=== PATIENT | female | born 1970 | race Caucasian/White ===

== ENCOUNTER 2017-03-13 22:44 | Emergency (ER) | payer SELFPAY ==
[~2017-03-13] VITALS: Ht 172.7 cm; Wt 100.0 kg
[~2017-03-13 22:44] MED LIST: ACET325S8 PR; CLAR5TAB PO; LORT5TAB PO; TAB-TAB PO; TOPI50TA4 PO; VITA10002 PO; omnaris
[2017-03-13 22:46] VITALS: BP 156/94; PULSE 120; RESP 16; TEMP 98.4; O2SAT 98
[2017-03-13 23:08] VITALS: O2SAT 97
[2017-03-13] MEDS ORDERED: LEVO1TAB50 PO (23:15)
[2017-03-13] MEDS ORDERED: DICL1CAP4 PO (23:15)
[2017-03-13] MEDS ORDERED: BUSP1TAB PO (23:15)
[2017-03-13] MEDS ORDERED: TOPA25TA8 PO (23:15)
--- NOTE | 2017-03-13 23:37 | PD ---
HPI Chief Complaint: Abdominal Pain Time Seen by Provider: 23:37 Travel History International Travel<30 days: No Contact w/Intl Traveler<30days: No Traveled to known affect area: No History of Present Illness HPI 46-year-old female came to the emergency room with history of left lower quadrant pain. She said she thinks she has diverticulitis because she has had it in past. This time she was in discomfort for past 4 days. Today she started to get chills and nauseous and decided to come in. No history of vomiting or diarrhea. No history of bloody stool. Patient was tachycardic in the emergency room but afebrile. PFSH Past Medical History Narrative Medical List of her past medical, surgical, social and family history as reviewed from the nursing note. Arthritis: Yes Asthma: No Autoimmune Disease: No Anxiety: Yes Depression: Yes ("SITUATIONAL") Heart Rhythm Problems: No Cancer: No High Cholesterol: No Chemotherapy: No Chest Pain: No Congestive Heart Failure: No COPD: No Cerebrovascular Accident: No Diabetes: No Diminished Hearing: No Diverticulitis: Yes Deep Vein Thrombosis: Yes GERD: No Glaucoma: No Headaches: Yes Hepatitis: No Hiatal Hernia: No Hypertension: No Kidney Stones: No Reproductive: No Migraines: Yes Myocardial Infarction: No Radiation Therapy: No Renal Failure: No Seizures: No Sickle Cell Disease: No Sleep Apnea: No Thyroid Disease: No Ulcer: No ?: Not Past Surgical History AICD: No Appendectomy: No Arteriovenous Shunt: No Cholecystectomy: No Insulin Pump: No Oral Surgery: Yes (t and a) Pacemaker: No Tonsillectomy: Yes (T&A) Other Surgery: Yes Social History Alcohol Use: Yes (rare) Tobacco Use: No Substance Use: No Allergies-Medications (Allergen,Severity, Reaction): Coded Allergies: Penicillin (Verified Allergy, Severe, RASH, 03/13/17) Comments List of her allergies reviewed from the nursing note. Reported Meds & Prescriptions Reported Meds & Active Scripts Active Flagyl (Metronidazole) 500 Mg Tab 500 Mg PO TID 10 Days Ciprofloxacin (Ciprofloxacin HCl) 500 Mg Tab 500 Mg PO BID 10 Days Reported Xyzal (Levocetirizine Dihydrochloride) 5 Mg Tablet 5 Mg PO DAILY Zorvolex (Diclofenac) 35 Mg Cap 75 Mg PO BID Buspirone (Buspirone HCl) 7.5 Mg Tab 7.5 Mg PO BID Topamax (Topiramate) 25 Mg Tab 50 Mg PO HS Narrative Medication List of home medications reviewed from the nursing note. Review of Systems Except as stated in HPI: all other systems reviewed are Neg Physical Exam Narrative GENERAL: Awake, alert, moderate distress SKIN: Focused skin assessment warm/dry. HEAD: Atraumatic. Normocephalic. EYES: Pupils equal and round. No scleral icterus. No injection or drainage. ENT: No nasal bleeding or discharge. Mucous membranes pink and moist. NECK: Trachea midline. No JVD. CARDIOVASCULAR: Regular rate and rhythm. No murmur appreciated. RESPIRATORY: No accessory muscle use. Clear to auscultation. Breath sounds equal bilaterally. GASTROINTESTINAL: Abdomen soft, left lower quadrant tenderness, nondistended. Hepatic and splenic margins not palpable. MUSCULOSKELETAL: No obvious deformities. No clubbing. No cyanosis. No edema. NEUROLOGICAL: Awake and alert. No obvious cranial nerve deficits. Motor grossly within normal limits. Normal speech. PSYCHIATRIC: Appropriate mood and affect; insight and judgment normal. Data Data Last Documented VS Vital Signs Date Time Temp Pulse Resp B/P Pulse Ox O2 Delivery O2 Flow Rate FiO2 03/14/17 01:19 84 123/63 97 Room Air 03/13/17 23:07 15 03/13/17 22:46 98.4 Orders Complete Blood Count With Diff (03/13/17 23:40) Comprehensive Metabolic Panel (03/13/17 23:40) Lipase (03/13/17 23:40) Lactic Acid (03/13/17 23:40) Prothrombin Time / Inr (Pt) (03/13/17 23:40) Urinalysis - C+S If Indicated (03/13/17 23:40) Ct Abd/Pel W/O Iv Contrast (03/13/17 23:40) Iv Access Insert/Monitor (03/13/17 23:40) Ecg Monitoring (03/13/17 23:40) Oximetry (03/13/17 23:40) Morphine Inj (Morphine Inj) (03/13/17 23:45) Ondansetron Inj (Zofran Inj) (03/13/17 23:45) Sodium Chlor 0.9% 1000 Ml Inj (Ns 1000 M (03/13/17 23:40) Sodium Chloride 0.9% Flush (Ns Flush) (03/13/17 23:45) Potassium Chloride Eff (K-Lyte Cl Eff) (03/14/17 00:45) Ciprofloxacin 400 Mg Premix (Cipro 400 M (03/14/17 00:45) Metronidazole 500 Mg Inj (Flagyl 500 Mg (03/14/17 00:45) Labs Laboratory Tests Test 03/13/17 03/14/17 23:45 00:33 White Blood Count 12.2 TH/MM3 Red Blood Count 4.73 MIL/MM3 Hemoglobin 14.1 GM/DL Hematocrit 40.9 % Mean Corpuscular Volume 86.5 FL Mean Corpuscular Hemoglobin 29.9 PG Mean Corpuscular Hemoglobin 34.6 % Concent Red Cell Distribution Width 13.7 % Platelet Count 271 TH/MM3 Mean Platelet Volume 7.9 FL Neutrophils (%) (Auto) 78.4 % Lymphocytes (%) (Auto) 13.9 % Monocytes (%) (Auto) 6.7 % Eosinophils (%) (Auto) 0.8 % Basophils (%) (Auto) 0.2 % Neutrophils # (Auto) 9.6 TH/MM3 Lymphocytes # (Auto) 1.7 TH/MM3 Monocytes # (Auto) 0.8 TH/MM3 Eosinophils # (Auto) 0.1 TH/MM3 Basophils # (Auto) 0.0 TH/MM3 CBC Comment DIFF FINAL Differential Comment Prothrombin Time 10.7 SEC Prothromb Time International 1.0 RATIO Ratio Sodium Level 142 MEQ/L Potassium Level 3.4 MEQ/L Chloride Level 108 MEQ/L Carbon Dioxide Level 24.8 MEQ/L Anion Gap 9 MEQ/L Blood Urea Nitrogen 11 MG/DL Creatinine 0.80 MG/DL Estimat Glomerular Filtration 77 ML/MIN Rate Random Glucose 110 MG/DL Lactic Acid Level 1.2 mmol/L Calcium Level 8.8 MG/DL Total Bilirubin 0.6 MG/DL Aspartate Amino Transf 33 U/L (AST/SGOT) Alanine Aminotransferase 59 U/L (ALT/SGPT) Alkaline Phosphatase 55 U/L Total Protein 7.8 GM/DL Albumin 3.9 GM/DL Lipase 191 U/L Urine Color LIGHT-YELLOW Urine Turbidity HAZY Urine pH 7.5 Urine Specific [place] 1.006 Urine Protein NEG mg/dL Urine Glucose (UA) NEG mg/dL Urine Ketones NEG mg/dL Urine Occult Blood NEG Urine Nitrite NEG Urine Bilirubin NEG Urine Urobilinogen LESS THAN 2.0 MG/DL Urine Leukocyte Esterase NEG Urine RBC LESS THAN 1 /hpf Urine WBC LESS THAN 1 /hpf Urine Squamous Epithelial <1 /hpf Cells Urine Amorphous Sediment RARE Urine Bacteria FEW /hpf Microscopic Urinalysis Comment CULT NOT INDICATED MDM Medical Decision Making Medical Screen Exam Complete: Yes Emergency Medical Condition: Yes Medical Record Reviewed: Yes Differential Diagnosis Acute diverticulitis, diverticular abscess Narrative Course 1:02 AM and had slight leukocytosis with left shift. There was mild hypokalemia which I have replaced. CT scan does show diverticulitis without any signs of abscess. I'm giving her IV ciprofloxacin and Flagyl. I've informed patient about this and she is comfortable with the plan of going home. Procedures EKG Prior to Arrival: No Diagnosis Primary Impression: Acute diverticulitis Referrals: Primary Care Physician Departure Forms: Tests/Procedures, Work Release Enter return to work date: Mar 16, 2017 Additional Instructions: Please return to the ER if the condition worsens or any other new concerns. Otherwise take the antibiotic as per the prescription direction. Drink alcohol while taking the antibiotic as it will give a pretty nasty reaction. Take clear liquid diet for the next 48 hours. Follow-up with your primary care in couple days. Med/Other Pt SpecificInfo: Prescription(s) given Scripts Metronidazole (Flagyl)500 Mg [id number] Mg PO TID 10 Days Ref 0 Prov:Allan Manley MD 03/14/17 Ciprofloxacin 500 Mg [id number] Mg PO BID 10 Days Ref 0 Prov:Allan Manley MD 03/14/17 Disposition: 01 DISCHARGE HOME Condition: Stable Allan Manley MD Mar 13, 2017 23:37
[2017-03-13] MEDS ORDERED: SODIUM CHLOR 0.9% 1000 ML INJ 1,000 ML IV SCH (23:40)
[2017-03-13] MEDS ORDERED: SODIUM CHLORIDE 0.9% FLUSH 10 ML FLUSH IV FLUSH PRN (23:45)
[2017-03-13] MEDS ORDERED: ONDANSETRON HCL 4 MG/2 ML VIAL IVP ONE (23:45)
[2017-03-13] MEDS ORDERED: MORPHINE SULFATE 4 MG/ML INJ IV PUSH ONE (23:45)
[2017-03-13 23:55] LABS: AUTOMATED NEUTROPHIL # 9.6 TH/MM3 (1.8-7.7); BASOPHIL % 0.2 % (0.0-2.0); EOSINOPHIL # 0.1 TH/MM3 (0-0.4); EOSINOPHIL % 0.8 % (0.0-4.0); HEMATOCRIT 40.9 % (35.0-46.0); HEMO FLAGS DIFF FINAL; LYMPH % 13.9 % (9.0-44.0); LYMPHOCYTE # 1.7 TH/MM3 (1.0-4.8); MEAN CELL VOLUME 86.5 FL (80.0-100.0); MEAN CORPUSCULAR HEMOGLOBIN 29.9 PG (27.0-34.0); MEAN CORPUSCULAR HGB CONC 34.6 % (32.0-36.0); MONO % 6.7 % (0.0-8.0); NEUT % 78.4 % (16.0-70.0); PLATELET COUNT 271 TH/MM3 (150-450); RED BLOOD COUNT 4.73 MIL/MM3 (4.00-5.30); RED CELL DISTRIBUTION WIDTH 13.7 % (11.6-17.2); WHITE BLOOD COUNT 12.2 TH/MM3 (4.0-11.0)
[2017-03-14 00:12] LABS: PROTHROMBIN TIME - PATIENT 10.7 SEC (9.8-11.6)
[2017-03-14 00:20] LABS: ALT (GPT) 59 U/L (10-53); ANION GAP 9 MEQ/L (5-15); AST (GOT) 33 U/L (15-37); BICARBONATE 24.8 MEQ/L (21.0-32.0); BLOOD UREA NITROGEN 11 MG/DL (7-18); CHLORIDE 108 MEQ/L (98-107); GLOMERULAR FILTRATION RATE 77 ML/MIN (>89); POTASSIUM 3.4 MEQ/L (3.5-5.1); SODIUM (NA) 142 MEQ/L (136-145)
[2017-03-14 00:22] LABS: ALKALINE PHOSPHATASE 55 U/L (45-117); TOTAL BILIRUBIN ADULT 0.6 MG/DL (0.2-1.0)
[2017-03-14] MEDS ORDERED: metroNIDAZOLE 500 MG INJ 100 ML IV ONE (00:45)
[2017-03-14] MEDS ORDERED: CIPROFLOXACIN 400 MG PREMIX 200 ML IV ONE (00:45)
[2017-03-14] MEDS ORDERED: POTASSIUM CHLORIDE 25 MEQ EFFERVESCENT TAB PO ONE (00:45)
--- NOTE | 2017-03-14 00:53 | RADRPT ---
EXAM DATE/TIME: 03/13/2017 23:59 [facility] COMPARISON: No previous studies available for comparison. INDICATIONS : Lower left quadrant abdominal pain. ORAL CONTRAST: No oral contrast ingested. RADIATION DOSE: 15.43 CTDIvol (mGy) MEDICAL HISTORY : Deep venous thrombosis. Diverticulitis. SURGICAL HISTORY : None. ENCOUNTER: Initial ACUITY: 3 days PAIN SCALE: 6/10 LOCATION: Left lower quadrant abdomen TECHNIQUE: Volumetric scanning of the abdomen and pelvis was performed. Using automated exposure control and ad justment of the mA and/or kV according to patient size, radiation dose was kept as low as reasonably achievable to obtain optimal diagnostic quality images. DICOM format image data is available electro nically for review and comparison. FINDINGS: LOWER LUNGS: The visualized lower lungs are clear. LIVER: Decreased attenuation without lesion. There is no dilation of the biliary tree. No calcified gallst ones. SPLEEN: Mildly enlarged without lesion. PANCREAS: Within normal limits. KIDNEYS: Normal in size and shape. There is no mass, stone, or hydronephrosis. ADRENAL GLANDS: Within normal limits. VASCULAR: There is no aortic aneurysm. BOWEL/MESENTERY: Inflammatory changes involving the sigmoid colon without perforation or abscess.. There is no free i ntraperitoneal air or fluid. ABDOMINAL WALL: Within normal limits. RETROPERITONEUM: There is no lymphadenopathy. BLADDER: No wall thickening or mass. REPRODUCTIVE: Within normal limits. INGUINAL: There is no lymphadenopathy or hernia. MUSCULOSKELETAL: Within normal limits for patient age. CONCLUSION: 1. Hepatic steatosis. 2. Mild splenomegaly. 3. Diverticulitis of the sigmoid colon without perforation or abscess. Micky Morrison MD on March 14, 2017 at 0:51 Board Certified Radiologist. This report was verified electronically.
[2017-03-14] MEDS ORDERED: CIPR500T2 PO (00:58)
[2017-03-14] MEDS ORDERED: METR-1 PO ×2 (00:58→01:19)
[2017-03-14 01:19] VITALS: BP 123/63; PULSE 84; O2SAT 97
[2017-03-14 01:32] LABS: BACTERIA, URINE FEW /hpf; BLOOD, URINE NEG (NEG); COMMENT (UR) CULT NOT INDICATED; CULTURE IF INDICATED CULT NOT INDICATED; GLUCOSE,URINE NEG (NEG); KETONE, URINE NEG (NEG); NITRITE,URINE NEG (NEG); PH, URINE 7.5 (5.0-8.5); SQUAMOUS EPITHELIAL CELL URINE <1 /hpf (0-5); URINE COLOR LIGHT-YELLOW (YELLW/STRAW)
== END 2017-03-14 01:58 | disposition home or self-care (01) ==
LOC: NEPE 22:44
DX: K57.92 Diverticulitis of intestine, part unspecified, without perforation or abscess without bleeding (principal); D72.829 Elevated white blood cell count, unspecified; E87.6 Hypokalemia; R00.0 Tachycardia, unspecified; F32.9 Major depressive disorder, single episode, unspecified; F41.9 Anxiety disorder, unspecified; M19.90 Unspecified osteoarthritis, unspecified site; Z79.899 Other long term (current) drug therapy; Z86.718 Personal history of other venous thrombosis and embolism
CPT/HCPCS: 74176; 80053; 81001; 83605; 83690; 85025; 85610; 96374; 96375; 99285; J0744; J2270; J2405; J7030

== ENCOUNTER 2017-04-10 16:12 | Emergency (ER) | payer BC ==
[~2017-04-10] VITALS: Ht 172.7 cm; Wt 95.0 kg
[~2017-04-10 16:12] MED LIST changes: -ACET325S8 PR; +BUSP1TAB PO; +CIPR500T2 PO; -CLAR5TAB PO; +DICL1CAP4 PO; +LEVO1TAB50 PO; -LORT5TAB PO; +METR-1 PO; -TAB-TAB PO; +TOPA25TA8 PO; -TOPI50TA4 PO; -VITA10002 PO; -omnaris
[2017-04-10 16:14] VITALS: BP 164/90; PULSE 114; RESP 20; TEMP 98.6; O2SAT 98
--- NOTE | 2017-04-10 16:33 | PD ---
HPI . here with c/o diverticulitis Chief Complaint: Abdominal Pain Time Seen by Provider: 16:33 Travel History International Travel<30 days: No Contact w/Intl Traveler<30days: No Traveled to known affect area: No History of Present Illness HPI 46-year-old female here with complaints of diverticulitis flare. Patient was seen by her primary care provider and given Cipro and Flagyl, which she has been taking. She tells me she is taking it for a couple of days but thinks her stomach was getting somewhat worse. Of note she was recently in here at the end of February and had labs and CT scan of the abdomen and pelvis done. She is able to eat. She denies any fever, chills or other complaints. She denies any melena or hematochezia. She has not ever seen a room service food service attendant. PFSH Past Medical History Arthritis: Yes Asthma: No Autoimmune Disease: No Anxiety: Yes Depression: Yes ("SITUATIONAL") Heart Rhythm Problems: No Cancer: No High Cholesterol: No Chemotherapy: No Chest Pain: No Congestive Heart Failure: No COPD: No Cerebrovascular Accident: No Diabetes: No Diminished Hearing: No Diverticulitis: Yes Deep Vein Thrombosis: Yes GERD: No Glaucoma: No Headaches: Yes Hepatitis: No Hiatal Hernia: No Hypertension: No Kidney Stones: No Reproductive: No Migraines: Yes Myocardial Infarction: No Radiation Therapy: No Renal Failure: No Seizures: No Sickle Cell Disease: No Sleep Apnea: No Thyroid Disease: No Ulcer: No ?: Not Past Surgical History AICD: No Appendectomy: No Arteriovenous Shunt: No Cholecystectomy: No Insulin Pump: No Oral Surgery: Yes (t and a) Pacemaker: No Tonsillectomy: Yes (T&A) Other Surgery: Yes (lumpectomy left breast) Social History Alcohol Use: Yes (rare) Tobacco Use: No Substance Use: No Allergies-Medications (Allergen,Severity, Reaction): Coded Allergies: Penicillin (Verified Allergy, Severe, RASH, 04/10/17) Reported Meds & Prescriptions Reported Meds & Active Scripts Active Lortab (Hydrocodone-Acetaminophen) 5-325 Mg Tab 1 Tab PO Q6H PRN Flagyl (Metronidazole) 500 Mg Tab 500 Mg PO TID 10 Days Ciprofloxacin (Ciprofloxacin HCl) 500 Mg Tab 500 Mg PO BID 10 Days Reported Xyzal (Levocetirizine Dihydrochloride) 5 Mg Tablet 5 Mg PO DAILY Zorvolex (Diclofenac) 35 Mg Cap 75 Mg PO BID Buspirone (Buspirone HCl) 7.5 Mg Tab 7.5 Mg PO BID Topamax (Topiramate) 25 Mg Tab 50 Mg PO HS Review of Systems General / Constitutional: No: Fever Eyes: No: Visual changes HENT: No: Headaches Cardiovascular: No: Chest Pain or Discomfort Respiratory: No: Shortness of Breath Gastrointestinal: Positive: Abdominal Pain (diffuse pain ) Genitourinary: No: Dysuria Musculoskeletal: No: Pain Skin: No Rash Neurologic: No: Weakness Psychiatric: No: Depression Endocrine: No: Polydipsia Hematologic/Lymphatic: No: Easy Bruising Physical Exam Narrative GENERAL: AAO x 3, no acute distress, Well-nourished, well-developed patient. SKIN: Warm and dry. No visible rashes or bruising. HEAD: Normocephalic and atraumatic. EYES: No scleral icterus. No injection or drainage. ENT: No nasal drainage noted. Mucous membranes pink. Airway patent. NECK: Supple, trachea midline. No JVD. CARDIOVASCULAR: Regular rate and rhythm without murmurs, gallops, or rubs. RESPIRATORY: Breath sounds equal bilaterally. No accessory muscle use. No rhonchi or rales. GASTROINTESTINAL: Abdomen soft, diffuse tenderness throughout the abdomen with deep palpation, no rebound or guarding EXTREMITIES: No cyanosis or edema. BACK: No obvious deformity. NEURO: CN II-12 intact, PSYCH: AAO x 3, normal affect. Data Data Last Documented VS Vital Signs Date Time Temp Pulse Resp B/P Pulse Ox O2 Delivery O2 Flow Rate FiO2 04/10/17 18:18 102 20 96 04/10/17 16:14 98.6 164/90 Orders Complete Blood Count With Diff (04/10/17 16:42) Comprehensive Metabolic Panel (04/10/17 16:42) Lipase (04/10/17 16:42) Iv Access Insert/Monitor (04/10/17 16:42) Ecg Monitoring (04/10/17 16:42) Oximetry (04/10/17 16:42) Sodium Chloride 0.9% Flush (Ns Flush) (04/10/17 16:45) Ciprofloxacin 400 Mg Premix (Cipro 400 M (04/10/17 16:45) Metronidazole 500 Mg Inj (Flagyl 500 Mg (04/10/17 16:45) Acetamin-Hydrocod 325-5 Mg ([place] 5-325 (04/10/17 18:00) Labs Laboratory Tests Test 04/10/17 16:55 White Blood Count 11.6 TH/MM3 Red Blood Count 4.81 MIL/MM3 Hemoglobin 13.9 GM/DL Hematocrit 42.3 % Mean Corpuscular Volume 87.9 FL Mean Corpuscular Hemoglobin 28.9 PG Mean Corpuscular Hemoglobin 32.9 % Concent Red Cell Distribution Width 13.4 % Platelet Count 279 TH/MM3 Mean Platelet Volume 7.4 FL Neutrophils (%) (Auto) 83.0 % Lymphocytes (%) (Auto) 10.9 % Monocytes (%) (Auto) 5.3 % Eosinophils (%) (Auto) 0.3 % Basophils (%) (Auto) 0.5 % Neutrophils # (Auto) 9.6 TH/MM3 Lymphocytes # (Auto) 1.3 TH/MM3 Monocytes # (Auto) 0.6 TH/MM3 Eosinophils # (Auto) 0.0 TH/MM3 Basophils # (Auto) 0.1 TH/MM3 CBC Comment DIFF FINAL Differential Comment Sodium Level 139 MEQ/L Potassium Level 3.5 MEQ/L Chloride Level 108 MEQ/L Carbon Dioxide Level 18.9 MEQ/L Anion Gap 12 MEQ/L Blood Urea Nitrogen 8 MG/DL Creatinine 0.84 MG/DL Estimat Glomerular Filtration 73 ML/MIN Rate Random Glucose 101 MG/DL Calcium Level 8.7 MG/DL Total Bilirubin 0.7 MG/DL Aspartate Amino Transf 22 U/L (AST/SGOT) Alanine Aminotransferase 40 U/L (ALT/SGPT) Alkaline Phosphatase 50 U/L Total Protein 8.1 GM/DL Albumin 3.9 GM/DL Lipase 94 U/L [facility] Medical Decision Making Medical Screen Exam Complete: Yes Emergency Medical Condition: Yes Medical Record Reviewed: Yes Differential Diagnosis diverticulitis, less likely c diff colitis, less likely pancreatitis Narrative Course 46-year-old female here with complaints of acute diverticulitis. Patient is oriented Cipro and Flagyl. Patient's examination is positive for diffuse tenderness throughout all quadrants. I discussed the case with Dr. Orlando. Patient was here less than a month ago and had labs and CT scan of abdomen and pelvis done. I do not believe imaging is warranted, however with the tachycardia I will check labs to see if there is any significant increase in her white count or any other abnormality. Laboratory Tests Test 04/10/17 16:55 White Blood Count 11.6 TH/MM3 Red Blood Count 4.81 MIL/MM3 Hemoglobin 13.9 GM/DL Hematocrit 42.3 % Mean Corpuscular Volume 87.9 FL Mean Corpuscular Hemoglobin 28.9 PG Mean Corpuscular Hemoglobin 32.9 % Concent Red Cell Distribution Width 13.4 % Platelet Count 279 TH/MM3 Mean Platelet Volume 7.4 FL Neutrophils (%) (Auto) 83.0 % Lymphocytes (%) (Auto) 10.9 % Monocytes (%) (Auto) 5.3 % Eosinophils (%) (Auto) 0.3 % Basophils (%) (Auto) 0.5 % Neutrophils # (Auto) 9.6 TH/MM3 Lymphocytes # (Auto) 1.3 TH/MM3 Monocytes # (Auto) 0.6 TH/MM3 Eosinophils # (Auto) 0.0 TH/MM3 Basophils # (Auto) 0.1 TH/MM3 CBC Comment DIFF FINAL Differential Comment Sodium Level 139 MEQ/L Potassium Level 3.5 MEQ/L Chloride Level 108 MEQ/L Carbon Dioxide Level 18.9 MEQ/L Anion Gap 12 MEQ/L Blood Urea Nitrogen 8 MG/DL Creatinine 0.84 MG/DL Estimat Glomerular Filtration 73 ML/MIN Rate Random Glucose 101 MG/DL Calcium Level 8.7 MG/DL Total Bilirubin 0.7 MG/DL Aspartate Amino Transf 22 U/L (AST/SGOT) Alanine Aminotransferase 40 U/L (ALT/SGPT) Alkaline Phosphatase 50 U/L Total Protein 8.1 GM/DL Albumin 3.9 GM/DL Lipase 94 U/L Labs have been reviewed. I've discussed the case with Dr. Batres. We have provided the patient with IV Cipro and IV Flagyl here in the emergency department. I've also provide her with some Lortab for pain control. I recommend that she follow-up with her primary care provider and get a referral to a room service food service attendant. I discussed the results with her of her lab tests. I explained that there was no indication of any widespread infection overt abnormality. In the meantime, I provided her with some Lortab to take while she is at home. She's been instructed to continue her antibiotic regimen at home. Patient verbalized understanding of instructions, questions were answered, and thanked me for their care. I advised them if their condition worsens, please return to the nearest emergency room for further care. Diagnosis Primary Impression: Acute diverticulitis Patient Instructions: General Instructions Additional Instructions: Continue your home antibiotics until complete. Follow-up with your primary care provider for referral to gastroenterology. Return to the emergency department for any worsening of your condition. Med/Other Pt SpecificInfo: Prescription(s) given Scripts Hydrocodone-Acetaminophen (Lortab)5-325 Mg Tab1 Tab PO Q6H PRN (PAIN) #12 TAB Ref 0 Prov:Sulaiman Batres MD 04/10/17 Disposition: 01 DISCHARGE HOME Condition: Stable Yamel James Apr 10, 2017 16:33
[2017-04-10] MEDS ORDERED: CIPROFLOXACIN 400 MG PREMIX 200 ML IV ONE (16:45)
[2017-04-10] MEDS ORDERED: SODIUM CHLORIDE 0.9% FLUSH 10 ML FLUSH IV FLUSH PRN (16:45)
[2017-04-10] MEDS ORDERED: metroNIDAZOLE 500 MG INJ 100 ML IV ONE (16:45)
[2017-04-10 17:08] VITALS: RESP 18; O2SAT 97
[2017-04-10 17:12] LABS: AUTOMATED NEUTROPHIL # 9.6 TH/MM3 (1.8-7.7); BASOPHIL # 0.1 TH/MM3 (0-0.2); BASOPHIL % 0.5 % (0.0-2.0); EOSINOPHIL % 0.3 % (0.0-4.0); HEMATOCRIT 42.3 % (35.0-46.0); HEMO FLAGS DIFF FINAL; LYMPH % 10.9 % (9.0-44.0); LYMPHOCYTE # 1.3 TH/MM3 (1.0-4.8); MEAN CELL VOLUME 87.9 FL (80.0-100.0); MEAN CORPUSCULAR HEMOGLOBIN 28.9 PG (27.0-34.0); MEAN CORPUSCULAR HGB CONC 32.9 % (32.0-36.0); MONO % 5.3 % (0.0-8.0); PLATELET COUNT 279 TH/MM3 (150-450); RED BLOOD COUNT 4.81 MIL/MM3 (4.00-5.30); RED CELL DISTRIBUTION WIDTH 13.4 % (11.6-17.2); WHITE BLOOD COUNT 11.6 TH/MM3 (4.0-11.0)
[2017-04-10 17:52] LABS: ALT (GPT) 40 U/L (10-53); ANION GAP 12 MEQ/L (5-15); AST (GOT) 22 U/L (15-37); BICARBONATE 18.9 MEQ/L (21.0-32.0); BLOOD UREA NITROGEN 8 MG/DL (7-18); CHLORIDE 108 MEQ/L (98-107); GLOMERULAR FILTRATION RATE 73 ML/MIN (>89); POTASSIUM 3.5 MEQ/L (3.5-5.1); SODIUM (NA) 139 MEQ/L (136-145)
[2017-04-10 17:54] LABS: ALKALINE PHOSPHATASE 50 U/L (45-117); TOTAL BILIRUBIN ADULT 0.7 MG/DL (0.2-1.0)
[2017-04-10] MEDS ORDERED: ACETAMINOPHEN/HYDROcodone 325 MG/5 MG TAB PO ONE (18:00)
[2017-04-10] MEDS ORDERED: HYDR-3533 PO ×2 (18:11→18:12)
[2017-04-10 18:18] VITALS: PULSE 102; RESP 20; O2SAT 96
[2017-04-10] MEDS ORDERED: PERC5TAB12 PO (19:11)
[2017-04-10 19:15] VITALS: RESP 16
[2017-04-10] MEDS ORDERED: MORPHINE SULFATE 4 MG/ML INJ IV PUSH ONE (19:15)
[2017-04-10] MEDS ORDERED: HYDROmorphone HCL PF 1 MG/ML VIAL IV PUSH ONE (19:30)
[2017-04-10 19:42] VITALS: BP 142/63; TEMP 98.3
== END 2017-04-10 19:50 | disposition home or self-care (01) ==
LOC: NEPD 16:12
DX: K57.92 Diverticulitis of intestine, part unspecified, without perforation or abscess without bleeding (principal)
CPT/HCPCS: 80053; 83690; 85025; 96365; 96367; 96375; 99284; J0744; J1170

== ENCOUNTER 2017-04-26 03:43 | Inpatient (IN) | payer BC ==
[~2017-04-26] VITALS: Ht 172.7 cm; Wt 95.0 kg
[~2017-04-26 03:43] MED LIST changes: +HYDR-3533 PO; +PERC5TAB12 PO
[2017-04-26 03:45] VITALS: BP 109/65; PULSE 100; RESP 16; TEMP 99.3; O2SAT 97
[2017-04-26] MEDS ORDERED: SODIUM CHLOR 0.9% 1000 ML INJ 1,000 ML IV ONE (04:15)
[2017-04-26] MEDS ORDERED: ONDANSETRON HCL 4 MG/2 ML VIAL IV ONE (04:15)
--- NOTE | 2017-04-26 04:22 | PD ---
HPI Chief Complaint: Abdominal Pain Time Seen by Provider: 03:53 Travel History International Travel<30 days: No Contact w/Intl Traveler<30days: No Traveled to known affect area: No History of Present Illness HPI The patient is 46 year old female who presents to the [facility] emergency department with a history of abdominal pain that she reports recurred yesterday. The patient reports having abdominal pain across the lower abdomen and suprapubic area. Her ports having associated bloating. She reports the pain is constant although also with intermittent sharp jabbing pains into the vagina. She denies having any dysuria, however she has had urinary frequency and urgency. The patient reports that she was recently diagnosed again with diverticulitis. She reports that she completed a course of antibiotic a couple of days ago. She denies having any vaginal discharge. She reports having nausea without vomiting. She reports having a diminished appetite. She reports that she last moved her bowels yesterday morning. She denies having any blood in her stool or black or tarry stools. She reports that she has an appointment with a colorectal surgeon, Dr. Herbert scheduled for Wednesday. On review of systems, the patient denies any recent cough, congestion, neck pain, chest pain, shortness of breath, abdominal pain, or neurologic symptoms. She does report having a fever with a MAXIMUM TEMPERATURE of 101 last night. [facility] Past Medical History Narrative Medical The patient's past medical history is significant for arthritis, anxiety, depression, diverticulitis first diagnosed in 2014, history of migraine headaches. Arthritis: Yes Asthma: No Autoimmune Disease: No Anxiety: Yes Depression: Yes ("SITUATIONAL") Heart Rhythm Problems: No Cancer: No High Cholesterol: No Chemotherapy: No Chest Pain: No Congestive Heart Failure: No COPD: No Cerebrovascular Accident: No Diabetes: No Diminished Hearing: No Diverticulitis: Yes Deep Vein Thrombosis: Yes GERD: No Glaucoma: No Headaches: Yes Hepatitis: No Hiatal Hernia: No Hypertension: No Kidney Stones: No Reproductive: No Migraines: Yes Myocardial Infarction: No Radiation Therapy: No Renal Failure: No Seizures: No Sickle Cell Disease: No Sleep Apnea: No Thyroid Disease: No Ulcer: No ?: Not : 1 Para: 1 Past Surgical History Narrative Surgical The patient's past surgical history is significant for a 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 She reports that she last had a colonoscopy at 19 years of age. AICD: No Appendectomy: No Arteriovenous Shunt: No Cholecystectomy: No Insulin Pump: No Oral Surgery: Yes (t and a) Pacemaker: No Tonsillectomy: Yes (T&A) Other Surgery: Yes (lumpectomy left breast) Social History Alcohol Use: Yes (rare) Tobacco Use: No Substance Use: No Allergies-Medications (Allergen,Severity, Reaction): Coded Allergies: Penicillin (Verified Allergy, Severe, RASH, 04/26/17) Reported Meds & Prescriptions Reported Meds & Active Scripts Active Percocet (Oxycodone-Acetaminophen) 5-325 mg Tab 1-2 Tab PO Q4H PRN Reported Xyzal (Levocetirizine Dihydrochloride) 5 Mg Tablet 5 Mg PO DAILY Zorvolex (Diclofenac) 35 Mg Cap 75 Mg PO BID Buspirone (Buspirone HCl) 7.5 Mg Tab 7.5 Mg PO BID Topamax (Topiramate) 25 Mg Tab 50 Mg PO HS Review of Systems Except as stated in HPI: all other systems reviewed are Neg General / Constitutional: Positive: Fever Eyes: No: Visual changes HENT: No: Headaches Cardiovascular: No: Chest Pain or Discomfort Respiratory: No: Shortness of Breath Gastrointestinal: Positive: Nausea, Abdominal Pain, Loss of Appetite, No: Vomiting, Diarrhea, Hematemesis, Hematochezia, Changes in Bowel Habits, Indigestion Genitourinary: No: Dysuria Musculoskeletal: No: Pain Skin: No Rash Neurologic: No: Weakness, Focal Abnormalities, Change in Mentation, Slurred Speech, Sensory Disturbance Psychiatric: No: Depression Endocrine: No: Polydipsia Hematologic/Lymphatic: No: Easy Bruising Physical Exam Narrative General: The patient is a well-developed well-nourished female uncomfortable appearing on examination related to lower abdominal pain. Head and Neck exam: Head is normocephalic atraumatic. Eyes: EOMI, pupils are equal round and reactive to light. Nose: Midline septum with pink mucous membranes Mouth: Dentition unremarkable. Moist mucus membranes. Posterior oropharynx is not erythematous. No tonsillar hypertrophy. Uvula midline. Airway patent. Neck: No palpable lymphadenopathy. No nuchal rigidity. No thyromegaly. Cardiovascular: Regular rate and rhythm without murmurs, gallops, or rubs. No pulse deficit to the extremities. Lungs: Clear to auscultation bilaterally. No wheezes, rhonchi, or rales. Abdomen: Soft, without tenderness to palpation in all 4 quadrants of the abdomen. No guarding, rebound, or rigidity. Negative Clawson sign. Extremities: No clubbing, cyanosis, or edema. 2+ pulses in all 4 extremities. Back: No spinous process tenderness to palpation. No costovertebral angle tenderness to palpation. Neurologic Exam: Cranial nerves 2-12 were intact on exam. Strength is 5/5 in all 4 extremities. No sensory deficits noted. No dysdiadochokinesis. Good finger to nose and Heel to becerra bilaterally. Skin Exam: No rash noted. Intact skin that is warm and dry. Data Data Last Documented VS Vital Signs Date Time Temp Pulse Resp B/P Pulse Ox O2 Delivery O2 Flow Rate FiO2 04/26/17 03:45 99.3 100 16 109/65 97 Room Air Orders Complete Blood Count With Diff (04/26/17 04:10) Comprehensive Metabolic Panel (04/26/17 04:10) C-Reactive Protein (Crp) (04/26/17 04:10) Lipase (04/26/17 04:10) Urinalysis - C+S If Indicated (04/26/17 04:10) Magnesium (Mg) (04/26/17 04:10) Iv Access Insert/Monitor (04/26/17 04:10) Ecg Monitoring (04/26/17 04:10) Oximetry (04/26/17 04:10) Ed Urine Pregnancytest Poc (04/26/17 04:10) Lactic Acid (04/26/17 04:10) Sodium Chlor 0.9% 1000 Ml Inj (Ns 1000 M (04/26/17 04:15) Ondansetron Inj (Zofran Inj) (04/26/17 04:15) Ct Abd/Pel W Iv Contrast(Rout) (04/26/17 04:13) Oral Contrast - Adult (04/26/17 04:25) Morphine Inj (Morphine Inj) (04/26/17 04:45) Vancomycin Inj (Vancomycin Inj) (04/26/17 05:32) Aztreonam Inj (Azactam Inj) (04/26/17 05:32) Metronidazole 500 Mg Inj (Flagyl 500 Mg (04/26/17 05:32) Blood Culture (04/26/17 05:32) Hydromorphone Pf Inj (Dilaudid Pf Inj) (04/26/17 06:45) Ondansetron Inj (Zofran Inj) (04/26/17 06:45) Iohexol 350 Inj (Omnipaque 350 Inj) (04/26/17 06:42) Labs Laboratory Tests Test 04/26/17 04/26/17 04:40 05:50 White Blood Count 16.4 TH/MM3 Red Blood Count 4.51 MIL/MM3 Hemoglobin 13.1 GM/DL Hematocrit 39.5 % Mean Corpuscular Volume 87.6 FL Mean Corpuscular Hemoglobin 29.0 PG Mean Corpuscular Hemoglobin 33.1 % Concent Red Cell Distribution Width 13.7 % Platelet Count 274 TH/MM3 Mean Platelet Volume 7.8 FL Neutrophils (%) (Auto) 90.5 % Lymphocytes (%) (Auto) 6.0 % Monocytes (%) (Auto) 3.2 % Eosinophils (%) (Auto) 0.0 % Basophils (%) (Auto) 0.3 % Neutrophils # (Auto) 14.9 TH/MM3 Lymphocytes # (Auto) 1.0 TH/MM3 Monocytes # (Auto) 0.5 TH/MM3 Eosinophils # (Auto) 0.0 TH/MM3 Basophils # (Auto) 0.0 TH/MM3 CBC Comment DIFF FINAL Differential Comment Sodium Level 137 MEQ/L Potassium Level 3.6 MEQ/L Chloride Level 104 MEQ/L Carbon Dioxide Level 23.5 MEQ/L Anion Gap 10 MEQ/L Blood Urea Nitrogen 12 MG/DL Creatinine 0.73 MG/DL Estimat Glomerular Filtration 85 ML/MIN Rate Random Glucose 108 MG/DL Lactic Acid Level 1.1 mmol/L Calcium Level 8.4 MG/DL Magnesium Level 1.8 MG/DL Total Bilirubin 1.1 MG/DL Aspartate Amino Transf 9 U/L (AST/SGOT) Alanine Aminotransferase 21 U/L (ALT/SGPT) Alkaline Phosphatase 42 U/L C-Reactive Protein 12.40 MG/DL Total Protein 7.3 GM/DL Albumin 3.5 GM/DL Lipase 60 U/L Urine Color YELLOW Urine Turbidity CLEAR Urine pH 6.5 Urine Specific [place] 1.014 Urine Protein NEG mg/dL Urine Glucose (UA) NEG mg/dL Urine Ketones NEG mg/dL Urine Occult Blood NEG Urine Nitrite NEG Urine Bilirubin NEG Urine Urobilinogen LESS THAN 2.0 MG/DL Urine Leukocyte Esterase NEG Urine RBC LESS THAN 1 /hpf Urine WBC LESS THAN 1 /hpf Urine Squamous Epithelial <1 /hpf Cells Urine Bacteria RARE /hpf Urine Mucus FEW /lpf Microscopic Urinalysis Comment CULT NOT INDICATED MDM Medical Decision Making Medical Screen Exam Complete: Yes Emergency Medical Condition: Yes Medical Record Reviewed: Yes Differential Diagnosis Cystitis, versus diverticulitis, versus colitis, versus C. difficile colitis Narrative Course During the course of the patients emergency department visit, the patients history, examination, and differential diagnosis were reviewed with the patient. The patient had IV access obtained and blood work sent for analysis. The patient is on a mask inspector with oximetry and blood pressure monitoring. A CT scan of the abdomen and pelvis was ordered. The patient was initially provided morphine for pain, Zofran for nausea. The patient was given normal saline 1 L IV fluid bolus. The patient was covered with broad-spectrum antibiotic for possible intra-abdominal source when her white blood cell count came back elevated at 16,000. The patient was given Azactam 2 g IV, vancomycin 1 g IV, Flagyl 500 mg IV. The patient reported continued pain and was given hydromorphone 0.5 mg IV with an additional dose of Zofran 4 mg IV. The patients laboratory studies were reviewed and remarkable for a white count of 16.4, hemoglobin 13.1, platelets 274 with neutrophils 90.5, CMP is remarkable for a glucose of 108, calcium 8.4, total bilirubin 1.1, AST 9, alkaline phosphatase 42, C-reactive protein 12.4, lipase 60, lactic acid 1.1, urinalysis unremarkable. CT scan of the abdomen and pelvis is pending. The patient's case will be checked out to the oncoming emergency physician to disposition the patient based on the conclusion of the patient's workup. Oralia Lynn MD Apr 26, 2017 04:22
[2017-04-26] MEDS ORDERED: MORPHINE SULFATE 4 MG/ML INJ IV PUSH ONE (04:45)
[2017-04-26 05:00] LABS: AUTOMATED NEUTROPHIL # 14.9 TH/MM3 (1.8-7.7); BASOPHIL % 0.3 % (0.0-2.0); HEMATOCRIT 39.5 % (35.0-46.0); HEMO FLAGS DIFF FINAL; MEAN CELL VOLUME 87.6 FL (80.0-100.0); MEAN CORPUSCULAR HGB CONC 33.1 % (32.0-36.0); MONO % 3.2 % (0.0-8.0); NEUT % 90.5 % (16.0-70.0); PLATELET COUNT 274 TH/MM3 (150-450); RED BLOOD COUNT 4.51 MIL/MM3 (4.00-5.30); RED CELL DISTRIBUTION WIDTH 13.7 % (11.6-17.2); WHITE BLOOD COUNT 16.4 TH/MM3 (4.0-11.0)
[2017-04-26 05:21] LABS: ALT (GPT) 21 U/L (10-53); ANION GAP 10 MEQ/L (5-15); AST (GOT) 9 U/L (15-37); BICARBONATE 23.5 MEQ/L (21.0-32.0); BLOOD UREA NITROGEN 12 MG/DL (7-18); CHLORIDE 104 MEQ/L (98-107); GLOMERULAR FILTRATION RATE 85 ML/MIN (>89); MAGNESIUM 1.8 MG/DL (1.5-2.5); POTASSIUM 3.6 MEQ/L (3.5-5.1); SODIUM (NA) 137 MEQ/L (136-145)
[2017-04-26 05:24] LABS: ALKALINE PHOSPHATASE 42 U/L (45-117); TOTAL BILIRUBIN ADULT 1.1 MG/DL (0.2-1.0)
[2017-04-26] MEDS ORDERED: metroNIDAZOLE 500 MG INJ 100 ML IV STA (05:32)
[2017-04-26] MEDS ORDERED: VANCOMYCIN INJ 1,000 MG in SODIUM CHLOR 0.9% 250 ML INJ 250 ML IV STA (05:32)
[2017-04-26] MEDS ORDERED: AZTREONAM INJ 2,000 MG in SODIUM CHLORIDE 0.9% INJ 100 ML IV STA (05:32)
[2017-04-26 06:06] LABS: BACTERIA, URINE RARE /hpf; BLOOD, URINE NEG (NEG); COMMENT (UR) CULT NOT INDICATED; CULTURE IF INDICATED CULT NOT INDICATED; GLUCOSE,URINE NEG (NEG); KETONE, URINE NEG (NEG); MUCUS URINE FEW /lpf (OCC); NITRITE,URINE NEG (NEG); PH, URINE 6.5 (5.0-8.5); SQUAMOUS EPITHELIAL CELL URINE <1 /hpf (0-5); URINE COLOR YELLOW (YELLW/STRAW)
[2017-04-26] MEDS ORDERED: IOHEXOL 350 MG/ML 10 ML VIAL (for RAD DIAG) IV ONE (06:42)
[2017-04-26] MEDS ORDERED: ONDANSETRON HCL 4 MG/2 ML VIAL IV PUSH ONE (06:45)
[2017-04-26] MEDS ORDERED: HYDROmorphone HCL PF 1 MG/ML VIAL IV PUSH ONE (06:45)
--- NOTE | 2017-04-26 06:51 | RADRPT ---
EXAM DATE/TIME: 04/26/2017 06:37 [facility] COMPARISON: CT ABDOMEN & PELVIS W/O CONTRAST, March 13, 2017, 23:59. INDICATIONS : Abdominal pain. History of diverticulitis. IV CONTRAST: 95 cc Omnipaque 350 (iohexol) IV ORAL CONTRAST: No oral contrast ingested. RADIATION DOSE: 16.30 CTDIvol (mGy) MEDICAL HISTORY : Deep venous thrombosis. Diverticulitis. Inflammatory bowel disease. SURGICAL HISTORY : Left lumpectomy ENCOUNTER: Initial ACUITY: 1 day PAIN SCALE: 7/10 LOCATION: Bilateral abdomen TECHNIQUE: Volumetric scanning of the abdomen and pelvis was performed. Using automated exposure control and ad justment of the mA and/or kV according to patient size, radiation dose was kept as low as reasonably achievable to obtain optimal diagnostic quality images. DICOM format image data is available electro nically for review and comparison. FINDINGS: Lung bases are clear. Osseous structures are intact. No pleural or pericardial effusions. Tiny infilt ration of the liver is identified. There is a large hemangioma in the central aspect of the liver shawanda suring 8 x 6.6 cm in transverse and AP dimension. The gallbladder, pancreas, adrenal glands, kidneys are unremarkable. Mild splenomegaly at 13.6 cm. Fat-containing umbilical hernia. Uterus, urinary blad roberto and bilateral ovaries are unremarkable. Small amount of free fluid in the pelvis. There is abnorm al bowel wall thickening and extensive inflammatory stranding, trace fluid, peritoneal enhancement an d foci of free air seen in the pelvis at the level of the markedly inflamed segment of sigmoid colon. This is at the site of previously noted diverticulitis, and the inflammatory changes have increased. A well-defined abscess is not seen however a small amount of fluid is noted anterior to the inflamed bowel. CONCLUSION: 1. Perforated sigmoid diverticulitis without definite abscess formation. 2. Hemangioma in the liver. 3. Mild splenomegaly. Kendrick Peace MD on April 26, 2017 at 6:47 Board Certified Radiologist. This report was verified electronically.
[2017-04-26 07:30] VITALS: BP 117/58; PULSE 113; RESP 16; TEMP 99.2; O2SAT 97
[2017-04-26 07:44] VITALS: O2SAT 97
[2017-04-26] MEDS ORDERED: NALOXONE HCL 0.4 MG/ML AMP IV PRN (07:45)
[2017-04-26] MEDS ORDERED: Vancomycin Consult Pharmacy 1 EA OTHER SCH (07:45)
[2017-04-26] MEDS ORDERED: BISACODYL 10 MG SUPP RECTAL PRN (07:45)
[2017-04-26] MEDS ORDERED: SENNOSIDES 8.6 MG TAB PO PRN (07:45)
[2017-04-26] MEDS ORDERED: ACETAMINOPHEN 325 MG TAB PO PRN (07:45)
[2017-04-26] MEDS ORDERED: MAGNESIUM HYDROXIDE SUSP 30 ML CUP PO PRN (07:45)
[2017-04-26] MEDS ORDERED: ZOLPIDEM TARTRATE 5 MG TAB PO PRN (07:45)
[2017-04-26] MEDS ORDERED: LACTULOSE SYRUP 20 GM/30 ML CUP PO PRN (07:45)
[2017-04-26] MEDS ORDERED: SODIUM CHLORIDE 0.9% FLUSH 10 ML FLUSH IV FLUSH PRN (07:45)
[2017-04-26] MEDS ORDERED: PROCHLORPERAZINE 25 MG SUPP RECTAL PRN (07:45)
[2017-04-26] MEDS: SODIUM CHLOR 0.9% 1000 ML INJ 1,000 ML IV SCH ×2 (07:48→16:59)
--- NOTE | 2017-04-26 08:01 | RADRPT ---
EXAM DATE/TIME: 04/26/2017 07:40 [facility] COMPARISON: No previous studies available for comparison. INDICATIONS : Patient is short of breath. MEDICAL HISTORY : Deep venous thrombosis. Diverticulitis. Inflammatory bowel disease. SURGICAL HISTORY : Left lumpectomy ENCOUNTER: Initial ACUITY: 1 day PAIN SCORE: 10/10 LOCATION: Bilateral Abdomen FINDINGS: A single view of the chest demonstrates the lungs to be symmetrically aerated without evidence of mas s, infiltrate or effusion. The cardiomediastinal contours are unremarkable. Osseous structures are intact. CONCLUSION: No evidence of acute cardiopulmonary disease. Oneil Be MD on April 26, 2017 at 8:00 Board Certified Radiologist. This report was verified electronically.
[2017-04-26] MEDS: oxyCODONE/ACETAMINOPHEN 5 MG/325 MG TAB PO PRN ×3 (08:42→19:49)
[2017-04-26] MEDS: DOCUSATE SODIUM 50 MG/SENNA 8.6 MG TAB PO SCH ×2 (09:00→19:49)
[2017-04-26] MEDS: D5-1/2 NS + KCL 20 MEQ INJ 1,000 ML IV SCH ×2 (09:01→20:03)
[2017-04-26] MEDS: SODIUM CHLORIDE 0.9% FLUSH 10 ML FLUSH IV FLUSH SCH ×2 (09:02→19:55)
[2017-04-26] MEDS: busPIRone HCL 5 MG TAB PO SCH ×2 (09:12→19:50)
--- NOTE | 2017-04-26 10:41 | HHI.HP ---
[facility] Primary Care Physician Unknown Admission Diagnosis diverticulitis, failed outpatient treatment. Diagnoses: (1) Acute diverticulitis Diagnosis: Principal (2) Failure of outpatient treatment Diagnosis: Principal (3) Abdominal pain (4) GERD (gastroesophageal reflux disease) Diagnosis: Secondary (5) Depression Diagnosis: Secondary (6) Anxiety Diagnosis: Secondary Chief Complaint: abdominal pain Travel History International Travel<30 Days: No Contact w/Intl Traveler <30 Da: No Traveled to Known Affected Are: No History of Present Illness This is a pleasant 46-year-old female with past medical history which includes situational anxiety/depression, migraine headaches treated with Topamax, DVT 2008 secondary to Abby use and diverticulitis first diagnosed in 2014. Patient reports she was doing well until approximately February when she had a flare up of her diverticulitis and was started on an outpatient course of antibiotics by her PCP she completed a 10 day course and felt well for approximately one week. Patient's abdominal bloating and pain returned she was again started on antibiotics outpatient and felt good until Wednesday. Patient reports Wednesday morning she awoke had a loose bowel movement which was associated with severe pain initially located in the vaginal area described as a stabbing sensation with radiating to bilateral lower abdominal quadrants. Patient denies dysuria or vaginal discharge. Patient reports the abdominal pain was 10 out of 10 after IV morphine given in emergency department pain is down to 5 out of 10. Patient is not sure what makes the abdominal pain worse. Patient reports laying still and the IV pain medication makes the abdominal pain better. Patient has associated abdominal bloating, nausea but no vomiting , temperature of 101.0 with chills this morning. Patient also reports she's been trying to eat healthy and has lost approximately 20 pounds over the past year. Patient has had failed outpatient therapy and treatment We'll consult colorectal surgery Review of Systems Constitutional: COMPLAINS OF: Fever, Weight loss, Change in appetite, DENIES: Diaphoretic episodes, Fatigue, Weight gain Endocrine: DENIES: Heat/cold intolerance Eyes: DENIES: Blurred vision, Diplopia, Eye inflammation, Eye pain, Vision loss , Photosensitivity Ears, nose, mouth, throat: DENIES: Tinnitus, Hearing loss, Vertigo Respiratory: DENIES: Apneas, Cough, Snoring, Wheezing Cardiovascular: DENIES: Chest pain Gastrointestinal: COMPLAINS OF: Abdominal pain, Diarrhea, Nausea, Vomiting, Anorexia, DENIES: Black stools, Bloody stools, Constipation Musculoskeletal: DENIES: Joint pain, Muscle aches Integumentary: DENIES: Abnormal pigmentation Hematologic/lymphatic: DENIES: Bruising, Lymphadenopathy Immunologic/allergic: DENIES: Eczema, Urticaria Neurologic: DENIES: Abnormal gait, Headache, Localized weakness Psychiatric: COMPLAINS OF: Anxiety, Depression, DENIES: Confusion, Mood changes Except as stated in HPI: all other systems reviewed are Neg Past Family Social History Past Medical History anxiety/depression, migraine headaches treated with Topamax, DVT 2008 secondary to Abby use and diverticulitis first diagnosed in 2014 Past Surgical History Left breast lumpectomy 2009, left shoulder manipulation 2013, colonoscopy at age 19, tonsils and adenoids removed as a child Reported Medications Percocet (Oxycodone-Acetaminophen) 5-325 mg Tab 1-2 Tab PO Q4H PRN Xyzal (Levocetirizine Dihydrochloride) 5 Mg Tablet 5 Mg PO DAILY Zorvolex (Diclofenac) 35 Mg Cap 75 Mg PO BID Buspirone (Buspirone HCl) 7.5 Mg Tab 7.5 Mg PO BID Topamax (Topiramate) 25 Mg Tab 50 Mg PO HS Allergies: Coded Allergies: Penicillin (Verified Allergy, Severe, RASH, 04/26/17) Active Ordered Medications Current Medications Medications (Trade) Dose Ordered Sig/Brenda Route Start Time Stop Time Status Last Admin (NS 1000 ml Inj) 1,000 ml @ 100 mls/hr Q10H IV 04/26/17 07:15 04/26/17 07:48 (Buspar) 7.5 mg BID PO 04/26/17 09:00 04/26/17 09:12 (Percocet 5-325 Mg) 2 tab Q4H PRN PO 04/26/17 07:30 04/26/17 08:42 (Topamax) 50 mg HS PO 04/26/17 21:00 Non-Formulary Medication 5 mg 5 mg DAILY PO 04/26/17 09:00 UNV Aztreonam 2000 mg/ Sodium Chloride 100 ml @ 200 mls/hr Q8HR IV 04/26/17 14:00 Metronidazole 100 ml @ 100 mls/hr Q8H IV 04/26/17 15:00 Pharmacy Profile Note 0 ml @ 0 mls/hr UNSCH OTHER 04/26/17 07:45 Vancomycin HCl 1000 mg/Sodium Chloride 250 ml @ 250 mls/hr Q12H IV 04/26/17 07:45 UNV (D5-1/2 NS + KCl 20 Meq Inj) 1,000 ml @ 100 mls/hr Q10H IV 04/26/17 07:34 04/26/17 09:01 (NS Flush) 2 ml UNSCH PRN IV FLUSH 04/26/17 07:45 (NS Flush) 2 ml BID IV FLUSH 04/26/17 09:00 04/26/17 09:02 (Tylenol) 650 mg Q4H PRN PO 04/26/17 07:45 (Zofran Inj) 4 mg Q6H PRN IVP 04/26/17 07:45 (Compazine Supp) 25 mg Q12H PRN RECTAL 04/26/17 07:45 (Ambien) 5 mg HS PRN PO 04/26/17 07:45 (Narcan Inj) 0.4 mg UNSCH PRN IV 04/26/17 07:45 (Wanda-Colace) 1 tab BID PO 04/26/17 09:00 (Milk Of Magnesia Liq) 30 ml Q12H PRN PO 04/26/17 07:45 (Senokot) 17.2 mg Q12H PRN PO 04/26/17 07:45 (Dulcolax Supp) 10 mg DAILY PRN RECTAL 04/26/17 07:45 (Lactulose Liq) 30 ml DAILY PRN PO 04/26/17 07:45 Family History Grandmother and father both had diverticulitis Mother secondary to breast cancer Social History has one daughter very rare ETOH use lifelong nonsmoker denies illicit drug use Physical Exam Vital Signs Vital Signs Date Time Temp Pulse Resp B/P Pulse Ox O2 Delivery O2 Flow Rate FiO2 04/26/17 07:44 97 21 04/26/17 07:30 99.2 113 16 117/58 97 Room Air 04/26/17 03:45 99.3 100 16 109/65 97 Room Air Physical Exam GENERAL: This is a well-nourished, well-developed patient, appear uncomfortable but in no apparent distress. SKIN: No rashes, ecchymoses or lesions. Cool and dry. HEAD: Atraumatic. Normocephalic. No temporal or scalp tenderness. Tongue is midline EYES: Extraocular motions intact. No scleral icterus. No injection or drainage. Pupils equal round reactive to light accommodation CARDIOVASCULAR: Regular rate and rhythm without murmurs, gallops, or rubs. S1- S2 no S3 or S4 no particular rub or gallop RESPIRATORY: Clear to auscultation. Breath sounds equal bilaterally. No wheezes , rales, or rhonchi. GASTROINTESTINAL: Abdomen soft, slightly distended, tender to light palpation bilateral lower quadrants MUSCULOSKELETAL: Extremities without clubbing, cyanosis, or edema. No joint tenderness, effusion, or edema noted. No calf tenderness. Negative Homans sign bilaterally. NEUROLOGICAL: Awake and alert. No focal deficits. Motor and sensory grossly within normal limits. Five out of 5 muscle strength in all muscle groups. Normal speech. Insight and judgment is good mood and behaviors appropriate Laboratory Laboratory Tests Test 04/26/17 04/26/17 04:40 05:50 White Blood Count 16.4 Red Blood Count 4.51 Hemoglobin 13.1 Hematocrit 39.5 Mean Corpuscular Volume 87.6 Mean Corpuscular Hemoglobin 29.0 Mean Corpuscular Hemoglobin 33.1 Concent Red Cell Distribution Width 13.7 Platelet Count 274 Mean Platelet Volume 7.8 Neutrophils (%) (Auto) 90.5 Lymphocytes (%) (Auto) 6.0 Monocytes (%) (Auto) 3.2 Eosinophils (%) (Auto) 0.0 Basophils (%) (Auto) 0.3 Neutrophils # (Auto) 14.9 Lymphocytes # (Auto) 1.0 Monocytes # (Auto) 0.5 Eosinophils # (Auto) 0.0 Basophils # (Auto) 0.0 CBC Comment DIFF FINAL Differential Comment Sodium Level 137 Potassium Level 3.6 Chloride Level 104 Carbon Dioxide Level 23.5 Anion Gap 10 Blood Urea Nitrogen 12 Creatinine 0.73 Estimat Glomerular Filtration 85 Rate Random Glucose 108 Lactic Acid Level 1.1 Calcium Level 8.4 Magnesium Level 1.8 Total Bilirubin 1.1 Aspartate Amino Transf 9 (AST/SGOT) Alanine Aminotransferase 21 (ALT/SGPT) Alkaline Phosphatase 42 C-Reactive Protein 12.40 Total Protein 7.3 Albumin 3.5 Lipase 60 Urine Color YELLOW Urine Turbidity CLEAR Urine pH 6.5 Urine Specific [place] 1.014 Urine Protein NEG Urine Glucose (UA) NEG Urine Ketones NEG Urine Occult Blood NEG Urine Nitrite NEG Urine Bilirubin NEG Urine Urobilinogen LESS THAN 2.0 Urine Leukocyte Esterase NEG Urine RBC LESS THAN 1 Urine WBC LESS THAN 1 Urine Squamous Epithelial <1 Cells Urine Bacteria RARE Urine Mucus FEW Microscopic Urinalysis Comment CULT NOT INDICATED Date/Time Procedure Status Source Growth 04/26/17 07:05 Aerobic Blood Culture Received Blood Peripheral Pending 04/26/17 07:05 Anaerobic Blood Culture Received Blood Peripheral Pending Result Diagram: 04/26/1743904/26/17439 Imaging Last Impressions Chest X-Ray 04/26/17733 Signed Impressions: Service Date/Time: Wednesday, April 26, 2017 07:40 - CONCLUSION: No evidence of acute cardiopulmonary disease. Oneil Be MD Abdomen/Pelvis CT 04/26/17 0413 Signed Impressions: Service Date/Time: Wednesday, April 26, 2017 06:37 - CONCLUSION: 1. Perforated sigmoid diverticulitis without definite abscess formation. 2. Hemangioma in the liver. 3. Mild splenomegaly. Kendrick Peace MD Assessment and Plan Problem List: (1) Acute diverticulitis ICD Code: K57.92 Status: Acute (2) GERD (gastroesophageal reflux disease) ICD Code: K21.9 Status: Acute (3) Failure of outpatient treatment ICD Code: Z78.9 Status: Acute (4) Abdominal pain ICD Code: R10.9 Status: Acute (5) Depression ICD Code: F32.9 Status: Acute (6) Anxiety ICD Code: F41.9 Status: Acute Assessment and Plan .This is a pleasant 46-year-old female with past medical history which includes situational anxiety/depression, migraine headaches treated with Topamax, DVT 2008 secondary to Abby use and diverticulitis first diagnosed in 2014. Patient has had a flare up of diverticulitis which began approximately February 2017 she has tried 2 rounds of outpatient antibiotics with recurrence and is now here for further treatment. Diverticulitis with perforated sigmoid diverticulitis Diverticulitis failed outpatient therapy C reactive protein 12.40 CT abdominal and pelvis reviewed and reveals: 1. Perforated sigmoid diverticulitis without definite abscess formation. 2. Hemangioma in the liver. 3. Mild splenomegaly. Nothing by mouth Consult colorectal surgery patient had appointment with Dr. Toledo on Wednesday Aztreonam 2 g IV every 8 hours, Flagyl 500 mg IV every 8 hours, and Vancomycin with pharmacy consulted to dose Anxiety/depression stable- Stable Continue home migraine headaches- Stable Continue Topamax DVT prophylaxis with TEDs and SCDs Discussed with Patient, nurse and Dr. Valderrama The exam, history, and the medical decision-making described in the above note were completed with the assistance of the mid-level provider. I reviewed and agree with the findings presented. I attest that I had a [id number] encounter with the patient on the same day, and personally performed and documented my assessment and findings in the medical record. Code Status Full code Discussed Condition With Discussed with patient RN emergency room physician and my physician's orthodontic technician assistant Physician Certification 2 Midnight Certification Type: Admission for Inpatient Services Order for Inpatient Services The services are ordered in accordance with Medicare regulations or non- Medicare payer requirements, as applicable. In the case of services not specified as inpatient-only, they are appropriately provided as inpatient services in accordance with the 2-midnight benchmark. Estimated LOS (days): 3 days is the estimated time the patient will need to remain in the hospital, assuming treatment plan goals are met and no additional complications. Post-Hospital Plan: Home Mariangel Harmon Apr 26, 2017 10:41 Charlie Valderrama DO Apr 26, 2017 13:03
[2017-04-26] MEDS ORDERED: VANCOMYCIN INJ 1,500 MG in SODIUM CHLORID 0.9% 500 ML INJ 500 ML IV ONE (12:30)
[2017-04-26] MEDS: metroNIDAZOLE 500 MG INJ 100 ML IV SCH ×2 (14:19→23:58)
--- NOTE | 2017-04-26 14:25 | MB ---
cc: CHUCK RAMIREZ M.D. DATE OF CONSULTATION: 04/26/2017 CHIEF COMPLAINT Acute diverticulitis with microperforation. HISTORY OF PRESENT ILLNESS The patient is a 46-year-old female who began having problems with diverticulitis in February of this year. She had a previous episode in 2014 as well. In February she was seen in the emergency department for severe diverticulitis and was placed on antibiotics. She improved, although she is not sure whether she got completely better. She then was seen by her primary care physician when she began worsening again and placed back on antibiotics and these did not seem to make her significantly better. She was seen again in the ED on April 13. At that time she was again started back on antibiotics. She states she had started to feel better and Wednesday she had a very good day, she felt very little pain and started to feel more energetic. Then Wednesday she began having more of a sharp pain. She states this felt different, she felt almost a pain in her vagina which then spread to her lower abdomen. She has had some nausea but no emesis. She reports a temperature of 101.0. She has had a colonoscopy in the distant past. She denies any family history of colorectal cancer or polyp. She has had some weight loss, with effort. REVIEW OF SYSTEMS The review of systems is negative for change in vision, change in hearing, chest pain, shortness of breath, difficulty breathing, changes in mood or mentation, difficulty with ambulation. PAST SURGICAL HISTORY 1. Left breast lumpectomy, benign. 2. Left shoulder manipulation. 3. Tonsils and adenoids. ALLERGIES PENICILLIN. MEDICATIONS 1. Percocet. 2. . 3. Norflex. 4. Buspirone. 5. Topamax. SOCIAL HISTORY The patient denies tobacco, has occasional alcohol, denies illicit drugs. PHYSICAL EXAMINATION GENERAL: An alert female who appears uncomfortable. NEUROLOGIC: Grossly intact. SKIN: Warm and dry. CARDIOVASCULAR: Regular rate. CHEST: Breathing is symmetric bilaterally and nonlabored. ABDOMEN: Soft, mildly distended. She is diffusely tender but most of her tenderness is centered in the left lower quadrant and suprapubic area. EXTREMITIES: No edema. LABORATORY Laboratory work revealed a white count of 16.14, hemoglobin 13.1, platelets 274. Chemistry showed a sodium of 137, potassium 3.6, chloride 104, bicarb 23.5, BUN 12, creatinine 0.73, glucose 108. Urinalysis is negative. IMAGING Imaging reveals inflammatory changes in the sigmoid colon, diverticulosis consistent with diverticulitis. There are some foci of air in the pelvis consistent with microperforation. IMPRESSION Persistent diverticulitis with microperforation. PLAN Ideally I would like to see if we can calm her down with IV antibiotics and bowel rest with plans for interval colectomy down the road. However, with her history she has a significant chance that this will not be successful and we will have to gone on to more emergent colectomy with colostomy and need for second surgery for reanastomosis. I discussed this with the patient today. We will give her 24-48 hours to see if we can get her turned around. If we cannot, we will go forward with surgery more emergently. Thank you very much for your kind referral. MD ASHVIN Bello/[place] /1:51 PM /2:07 PM MTDGia
[2017-04-26 14:29] VITALS: BP 102/60; PULSE 72; RESP 16; TEMP 97.8; O2SAT 99
[2017-04-26] MEDS: AZTREONAM INJ 2,000 MG in SODIUM CHLORIDE 0.9% INJ 100 ML IV SCH ×2 (15:09→23:58)
--- NOTE | 2017-04-26 16:22 | EKG ---
Date Performed: 04/26/2017 Time Performed: 08:01:06 PTAGE: 46 years EKG: SINUS TACHYCARDIA NONSPECIFIC T-WAVE ABNORMALITY ABNORMAL RHYTHM ECG NO PREVIOUS TRACING DOCTOR: Fer Bourgeois Interpretating Date/Time 04/26/2017 16:19:09
[2017-04-26] MEDS: VANCOMYCIN 1,500 MG/NS 500 ML IV SCH ×2 (16:59)
[2017-04-26 18:30] VITALS: BP 107/61; PULSE 104; RESP 18; TEMP 97.3; O2SAT 97
[2017-04-26] MEDS: TOPIRAMATE 25 MG TAB PO SCH (19:50)
[2017-04-26 20:00] VITALS: BP 118/63; PULSE 106; RESP 17; TEMP 97.9; O2SAT 95
[2017-04-27] VITALS (9 sets, daily range): BP systolic 99–117; BP diastolic 56–87; PULSE 81–114; RESP 17–20; TEMP 97.8–98.6; O2SAT 95–97
[2017-04-27] MEDS: oxyCODONE/ACETAMINOPHEN 5 MG/325 MG TAB PO PRN ×3 (00:51→15:38)
[2017-04-27] MEDS: SODIUM CHLOR 0.9% 1000 ML INJ 1,000 ML IV SCH ×3 (03:15→21:49)
[2017-04-27] MEDS: D5-1/2 NS + KCL 20 MEQ INJ 1,000 ML IV SCH ×3 (03:23→21:50)
[2017-04-27] MEDS: VANCOMYCIN 1,500 MG/NS 500 ML IV SCH ×4 (03:25→17:16)
[2017-04-27] MEDS: AZTREONAM INJ 2,000 MG in SODIUM CHLORIDE 0.9% INJ 100 ML IV SCH ×3 (06:05→21:45)
[2017-04-27] MEDS: metroNIDAZOLE 500 MG INJ 100 ML IV SCH ×3 (06:07→21:44)
[2017-04-27] MEDS: ONDANSETRON HCL 4 MG/2 ML VIAL IVP PRN ×2 (06:13→18:05)
[2017-04-27] MEDS: SODIUM CHLORIDE 0.9% FLUSH 10 ML FLUSH IV FLUSH SCH ×2 (09:00→21:42)
[2017-04-27] MEDS ORDERED: PT OWN MED: LEVOCETIRIZINE 5MG PO DAILY PO SCH (09:00)
--- NOTE | 2017-04-27 09:25 | HHI.PR ---
Subjective Remarks Diverticulitis with microperforation Still with pain, slightly improved Objective Vital Signs Date Time Temp Pulse Resp B/P Pulse Ox O2 Delivery O2 Flow Rate FiO2 04/27/17 08:01 97 21 04/27/17 08:00 98.2 100 18 114/60 95 04/27/17 06:52 114 04/27/17 06:17 109/87 04/27/17 03:55 98.6 93 17 99/60 95 04/27/17 00:00 98.4 81 17 109/61 95 04/26/17 20:00 97.9 106 17 118/63 95 04/26/17 18:30 97.3 104 18 107/61 97 04/26/17 15:06 15 04/26/17 14:29 97.8 72 16 102/60 99 Room Air I/O 04/26/17 04/26/17 04/26/17 04/27/17 04/27/17 04/27/17 07:00 15:00 23:00 07:00 15:00 23:00 Intake Total 240 ml 1529 ml Balance 240 ml 1529 ml Intake Oral 240 ml 240 ml IV Total 1289 ml # Voids 2 2 Result Diagram: 04/26/17 0440 04/26/17 0440 Objective Remarks Abdomen soft, nondistended Tenderness in left lower quadrant still significant, generalized tenderness significantly improved Assessment and Plan Assessment and Plan Improved but not as much as I'd like I will give her 24 hours and reevaluate If not significantly improved, may need more urgent surgery Pushpa Maravilla MD Apr 27, 2017 09:25
[2017-04-27] MEDS: busPIRone HCL 5 MG TAB PO SCH ×2 (09:35→21:00)
[2017-04-27] MEDS: DOCUSATE SODIUM 50 MG/SENNA 8.6 MG TAB PO SCH ×2 (09:35→21:00)
[2017-04-27 12:48] LABS: AUTOMATED NEUTROPHIL # 9.7 TH/MM3 (1.8-7.7); BASOPHIL % 0.1 % (0.0-2.0); EOSINOPHIL # 0.1 TH/MM3 (0-0.4); EOSINOPHIL % 0.5 % (0.0-4.0); HEMATOCRIT 34.3 % (35.0-46.0); HEMO FLAGS DIFF FINAL; LYMPH % 6.7 % (9.0-44.0); LYMPHOCYTE # 0.7 TH/MM3 (1.0-4.8); MEAN CELL VOLUME 88.5 FL (80.0-100.0); MEAN CORPUSCULAR HEMOGLOBIN 29.7 PG (27.0-34.0); MEAN CORPUSCULAR HGB CONC 33.5 % (32.0-36.0); MONO % 4.4 % (0.0-8.0); NEUT % 88.3 % (16.0-70.0); PLATELET COUNT 239 TH/MM3 (150-450); RED BLOOD COUNT 3.88 MIL/MM3 (4.00-5.30); RED CELL DISTRIBUTION WIDTH 13.7 % (11.6-17.2)
[2017-04-27 12:50] LABS: INTERNATIONAL NORMALIZED RATIO 1.2 RATIO; PROTHROMBIN TIME - PATIENT 12.9 SEC (9.8-11.6)
[2017-04-27 13:34] LABS: ANION GAP 8 MEQ/L (5-15); AST (GOT) 9 U/L (15-37); BICARBONATE 24.1 MEQ/L (21.0-32.0); BLOOD UREA NITROGEN 4 MG/DL (7-18); CHLORIDE 109 MEQ/L (98-107); GLOMERULAR FILTRATION RATE 114 ML/MIN (>89); MAGNESIUM 2.2 MG/DL (1.5-2.5); POTASSIUM 3.5 MEQ/L (3.5-5.1); SODIUM (NA) 141 MEQ/L (136-145)
[2017-04-27 13:46] LABS: ALKALINE PHOSPHATASE 43 U/L (45-117); ALT (GPT) 17 U/L (10-53); FREE T4 1.55 NG/DL (0.76-1.46); TOTAL BILIRUBIN ADULT 0.7 MG/DL (0.2-1.0)
[2017-04-27 17:17] LABS: HEMOGLOBIN Ao 85.2 %; HEMOGLOBIN F 1.1 %; HEMOGLOBIN LA1C 2.1 %; HEMOGLOBIN P3 3.7 %
[2017-04-27] MEDS: TOPIRAMATE 25 MG TAB PO SCH (21:00)
--- NOTE | 2017-04-27 23:56 | HHI.PR ---
Subjective Remarks Patient seen this morning around 11 AM. Says abdominal pain is slightly improved. She is frustrated with recurrent attacks of diverticulitis. Objective Vital Signs Date Time Temp Pulse Resp B/P Pulse Ox O2 Delivery O2 Flow Rate FiO2 04/27/17 20:00 97.8 101 20 117/69 96 04/27/17 16:11 98.5 89 18 106/56 95 04/27/17 12:00 98.1 98 18 109/67 95 04/27/17 08:01 97 21 04/27/17 08:00 98.2 100 18 114/60 95 04/27/17 06:52 114 04/27/17 06:17 109/87 04/27/17 03:55 98.6 93 17 99/60 95 04/27/17 00:00 98.4 81 17 109/61 95 I/O 04/26/17 04/26/17 04/26/17 04/27/17 04/27/17 04/27/17 06:59 14:59 22:59 06:59 14:59 22:59 Intake Total 240 ml 1529 ml 621 ml Balance 240 ml 1529 ml 621 ml Intake Oral 240 ml 240 ml IV Total 1289 ml 621 ml # Voids 2 2 2 Result Diagram: 04/27/17 1212 04/27/17 1212 Objective Remarks GENERAL: patient lying in bed. Appears comfortable. SKIN: Warm and dry. HEAD: Normocephalic. EYES: No scleral icterus. No injection or drainage. NECK: Supple, trachea midline. No JVD. CARDIOVASCULAR: Regular rate and rhythm without murmurs, gallops, or rubs. RESPIRATORY: Breath sounds equal bilaterally. No accessory muscle use. GASTROINTESTINAL: Abdomen soft, non-tender, nondistended. MUSCULOSKELETAL: No cyanosis, or edema. BACK: Nontender without obvious deformity. No CVA tenderness. A/P Assessment and Plan 04/27/17 Pain slightly improved. Continue broad-spectrum antibiotics. Colorectal surgery following. Appreciate assistance. This is a pleasant 46-year-old female with past medical history which includes situational anxiety/depression, migraine headaches treated with Topamax, DVT 2008 secondary to Abby use and diverticulitis first diagnosed in 2014. Patient has had a flare up of diverticulitis which began approximately February 2017 she has tried 2 rounds of outpatient antibiotics with recurrence and is now here for further treatment. //Diverticulitis with perforated sigmoid diverticulitis //Diverticulitis failed outpatient therapy -C reactive protein 12.40 -CT abdominal and pelvis reviewed and reveals: 1. Perforated sigmoid diverticulitis without definite abscess formation. 2. Hemangioma in the liver. 3. Mild splenomegaly. -Nothing by mouth -Consult colorectal surgery patient had appointment with Dr. Toledo on Wednesday -Aztreonam 2 g IV every 8 hours, Flagyl 500 mg IV every 8 hours, and Vancomycin with pharmacy consulted to dose //Anxiety/depression stable- Stable Continue home //migraine headaches- Stable Continue Topamax //DVT prophylaxis with TEDs and SCDs. Anticoagulation as per surgical service. Discharge Planning when cleared by general surgery. Lion Blas MD Apr 27, 2017 23:56
[2017-04-28] VITALS: BP 117/69; PULSE 90; RESP 20; TEMP 98.2; O2SAT 97
[2017-04-28] MEDS: ONDANSETRON HCL 4 MG/2 ML VIAL IVP PRN ×4 (01:30→23:36)
[2017-04-28] MEDS ORDERED: PHARMACY ORDERED LAB ONE (02:45)
[2017-04-28 04:00] VITALS: BP 118/71; PULSE 92; RESP 20; TEMP 98.8; O2SAT 96
[2017-04-28] MEDS: VANCOMYCIN 1,500 MG/NS 500 ML IV SCH ×2 (04:26)
[2017-04-28] MEDS: AZTREONAM INJ 2,000 MG in SODIUM CHLORIDE 0.9% INJ 100 ML IV SCH ×3 (06:36→22:20)
[2017-04-28] MEDS: metroNIDAZOLE 500 MG INJ 100 ML IV SCH (06:36)
[2017-04-28] MEDS: HYDROmorphone HCL PF 1 MG/ML VIAL IV PUSH PRN ×3 (07:29→17:28)
[2017-04-28 08:00] VITALS: BP 120/71; PULSE 105; RESP 17; TEMP 99; O2SAT 96
--- NOTE | 2017-04-28 08:17 | HHI.PR ---
Subjective Remarks Diverticulitis with microperforation Still with pain, nausea - just feels bad Objective Vital Signs Date Time Temp Pulse Resp B/P Pulse Ox O2 Delivery O2 Flow Rate FiO2 04/28/17 04:00 98.8 92 20 118/71 96 04/28/17 00:00 98.2 90 20 117/69 97 04/27/17 20:00 97.8 101 20 117/69 96 04/27/17 16:11 98.5 89 18 106/56 95 04/27/17 12:00 98.1 98 18 109/67 95 I/O 04/27/17 04/27/17 04/27/17 04/28/17 04/28/17 04/28/17 07:00 15:00 23:00 07:00 15:00 23:00 Intake Total 1529 ml 621 ml 1269 ml Output Total 2 ml Balance 1529 ml 621 ml -2 ml 1269 ml Intake Oral 240 ml IV Total 1289 ml 621 ml 1269 ml Output Urine Total 2 ml # Voids 2 2 2 Result Diagram: 04/27/17 1212 04/27/17 1212 Objective Remarks Abdomen soft, nondistended Still with localized tenderness, moderate Assessment and Plan Assessment and Plan Improving WBC's normalized Will change Flagyl to Cipro, likely cause of her nausea MOBILIZE Pushpa Maravilla MD Apr 28, 2017 08:17
[2017-04-28] MEDS: busPIRone HCL 5 MG TAB PO SCH ×2 (09:00→22:27)
[2017-04-28] MEDS: POLYETHYLENE GLYCOL 17 GM PKG PO SCH ×3 (09:00→23:47)
[2017-04-28] MEDS: SODIUM CHLOR 0.9% 1000 ML INJ 1,000 ML IV SCH ×3 (09:15→23:48)
[2017-04-28] MEDS: D5-1/2 NS + KCL 20 MEQ INJ 1,000 ML IV SCH ×3 (09:34→23:48)
--- NOTE | 2017-04-28 10:46 | RADRPT ---
EXAM DATE/TIME: 04/28/2017 10:29 [place] COMPARISON: No previous studies available for comparison. INDICATIONS : Lower left abdominal pain. MEDICAL HISTORY : Deep venous thrombosis. Diverticulitis. Inflammatory bowel disease. SURGICAL HISTORY : Lumpectomy, left. ENCOUNTER: Initial ACUITY: 2 days PAIN SCORE: 6/10 LOCATION: Left lower quadrant abdomen FINDINGS: Supine view of the abdomen was performed. The abdominal bowel gas pattern is normal. No abnormal ma sses, calcifications, or organomegaly is seen. The osseous structures are unremarkable. CONCLUSION: Normal examination. Oneil Arreola MD on April 28, 2017 at 10:44 Board Certified Radiologist. This report was verified electronically.
[2017-04-28] MEDS: CLINDAMYCIN INJ 600 MG in SODIUM CHLORIDE 0.9% INJ 100 ML IV SCH ×3 (11:31→22:20)
[2017-04-28] MEDS: SODIUM CHLORIDE 0.9% FLUSH 10 ML FLUSH IV FLUSH SCH ×2 (11:33→22:27)
[2017-04-28 12:00] VITALS: BP 122/66; PULSE 98; RESP 16; TEMP 98.6; O2SAT 97
[2017-04-28] MEDS ORDERED: VANCOMYCIN INJ 1,750 MG in SODIUM CHLORID 0.9% 500 ML INJ 500 ML IV SCH (15:00)
[2017-04-28 16:00] VITALS: BP 126/70; PULSE 98; RESP 17; TEMP 98.8; O2SAT 97
--- NOTE | 2017-04-28 19:44 | HHI.PR ---
Subjective Remarks Patient seen this morning around 11 AM. She says that pain is stable, but does report bilious vomiting this morning. Denies any chest pain or shortness of breath. Reports some small bowel movements. Objective Vital Signs Date Time Temp Pulse Resp B/P Pulse Ox O2 Delivery O2 Flow Rate FiO2 04/28/17 16:00 98.8 98 17 126/70 97 04/28/17 12:00 98.6 98 16 122/66 97 04/28/17 08:00 99.0 105 17 120/71 96 04/28/17 04:00 98.8 92 20 118/71 96 04/28/17 00:00 98.2 90 20 117/69 97 04/27/17 20:00 97.8 101 20 117/69 96 I/O 04/27/17 04/27/17 04/27/17 04/28/17 04/28/17 04/28/17 07:00 15:00 23:00 07:00 15:00 23:00 Intake Total 1529 ml 621 ml 1269 ml Output Total 2 ml Balance 1529 ml 621 ml -2 ml 1269 ml Intake Oral 240 ml 0 ml IV Total 1289 ml 621 ml 1269 ml Output Urine Total 2 ml # Voids 2 2 2 6 # Bowel Movements 5 Result Diagram: 04/27/17 1212 04/27/17 1212 Objective Remarks GENERAL: patient lying in bed. Appears comfortable.no appreciable change from yesterday SKIN: Warm and dry. HEAD: Normocephalic. EYES: No scleral icterus. No injection or drainage. NECK: Supple, trachea midline. No JVD. CARDIOVASCULAR: Regular rate and rhythm without murmurs, gallops, or rubs. RESPIRATORY: Breath sounds equal bilaterally. No accessory muscle use. GASTROINTESTINAL: Abdomen soft, non-tender, nondistended. hypoactive bowel sounds. MUSCULOSKELETAL: No cyanosis, or edema. BACK: Nontender without obvious deformity. No CVA tenderness. A/P Assessment and Plan 04/28/17 Abdominal x-ray today is normal examination. Laxatives ordered by surgical service. -Surgical service has switched anaerobic coverage from metronidazole to clindamycin. We'll stop vancomycin //Hypophosphatemia. Replaced This is a pleasant 46-year-old female with past medical history which includes situational anxiety/depression, migraine headaches treated with Topamax, DVT 2008 secondary to Abby use and diverticulitis first diagnosed in 2014. Patient has had a flare up of diverticulitis which began approximately February 2017 she has tried 2 rounds of outpatient antibiotics with recurrence and is now here for further treatment. //Diverticulitis with perforated sigmoid diverticulitis //Diverticulitis failed outpatient therapy -C reactive protein 12.40 -CT abdominal and pelvis reviewed and reveals: 1. Perforated sigmoid diverticulitis without definite abscess formation. 2. Hemangioma in the liver. 3. Mild splenomegaly. -Nothing by mouth -Consult colorectal surgery patient had appointment with Dr. Toledo on Wednesday -Aztreonam 2 g IV every 8 hours, Flagyl 500 mg IV every 8 hours, and Vancomycin with pharmacy consulted to dose //Anxiety/depression stable- Stable Continue home //migraine headaches- Stable Continue Topamax //DVT prophylaxis with TEDs and SCDs. Anticoagulation as per surgical service. Discharge Planning when cleared by general surgery. Lion Blas MD Apr 28, 2017 19:44
[2017-04-28 20:00] VITALS: BP 129/78; PULSE 99; RESP 22; TEMP 98.6; O2SAT 97
[2017-04-28] MEDS ORDERED: SODIUM PHOSPHATE INJ 15 MMOL in SODIUM CHLORIDE 0.9% INJ 150 ML IV ONE (20:00)
[2017-04-28] MEDS: TOPIRAMATE 25 MG TAB PO SCH (22:26)
[2017-04-29] VITALS (8 sets, daily range): BP systolic 119–162; BP diastolic 65–93; PULSE 74–102; RESP 17–22; TEMP 96.3–98; O2SAT 96–97
[2017-04-29] MEDS: CLINDAMYCIN INJ 600 MG in SODIUM CHLORIDE 0.9% INJ 100 ML IV SCH ×4 (05:52→23:46)
[2017-04-29] MEDS: AZTREONAM INJ 2,000 MG in SODIUM CHLORIDE 0.9% INJ 100 ML IV SCH ×3 (05:53→21:54)
[2017-04-29 07:05] LABS: AUTOMATED NEUTROPHIL # 5.4 TH/MM3 (1.8-7.7); BASOPHIL % 0.2 % (0.0-2.0); EOSINOPHIL # 0.1 TH/MM3 (0-0.4); EOSINOPHIL % 1.3 % (0.0-4.0); HEMATOCRIT 32.7 % (35.0-46.0); HEMO FLAGS DIFF FINAL; LYMPH % 16.4 % (9.0-44.0); LYMPHOCYTE # 1.2 TH/MM3 (1.0-4.8); MEAN CELL VOLUME 86.8 FL (80.0-100.0); MEAN CORPUSCULAR HEMOGLOBIN 29.6 PG (27.0-34.0); MEAN CORPUSCULAR HGB CONC 34.1 % (32.0-36.0); MONO % 6.1 % (0.0-8.0); PLATELET COUNT 276 TH/MM3 (150-450); RED BLOOD COUNT 3.77 MIL/MM3 (4.00-5.30); RED CELL DISTRIBUTION WIDTH 13.5 % (11.6-17.2); WHITE BLOOD COUNT 7.1 TH/MM3 (4.0-11.0)
[2017-04-29 07:16] LABS: BICARBONATE 21.5 MEQ/L (21.0-32.0); MAGNESIUM 2.3 MG/DL (1.5-2.5); POTASSIUM 3.1 MEQ/L (3.5-5.1)
[2017-04-29] MEDS: busPIRone HCL 5 MG TAB PO SCH ×2 (08:58→21:53)
[2017-04-29] MEDS: ONDANSETRON HCL 4 MG/2 ML VIAL IVP PRN ×2 (08:59→16:36)
[2017-04-29] MEDS: POLYETHYLENE GLYCOL 17 GM PKG PO SCH ×2 (09:00→16:32)
[2017-04-29] MEDS: SODIUM CHLORIDE 0.9% FLUSH 10 ML FLUSH IV FLUSH SCH ×2 (09:00→21:00)
[2017-04-29] MEDS ORDERED: POTASSIUM CHLORIDE 10 MEQ CONTROLLED RELEASE TAB PO ONE (10:15)
--- NOTE | 2017-04-29 14:22 | HHI.PR ---
Subjective Remarks Patient seen this morning around 11 AM. She reports some nausea but no vomiting. Abdominal pain slightly improved. Says she does not feel comfortable going home. Objective Vital Signs Date Time Temp Pulse Resp B/P Pulse Ox O2 Delivery O2 Flow Rate FiO2 04/29/17 12:00 97.7 86 17 119/68 97 04/29/17 08:00 97.1 96 17 123/65 97 04/29/17 04:00 98.0 96 22 122/76 96 04/29/17 00:36 100 04/29/17 00:00 98.0 95 22 162/93 96 04/28/17 20:00 98.6 99 22 129/78 97 04/28/17 16:00 98.8 98 17 126/70 97 I/O 04/28/17 04/28/17 04/28/17 04/29/17 04/29/17 04/29/17 06:59 14:59 22:59 06:59 14:59 22:59 Intake Total 1269 ml 0 ml 2013 ml 566 ml Balance 1269 ml 0 ml 2013 ml 566 ml Intake Oral 0 ml 0 ml 0 ml IV Total 1269 ml 2013 ml 566 ml # Voids 2 6 4 2 # Bowel Movements 5 4 Result Diagram: 04/29/1760604/29/17606 Objective Remarks GENERAL: patient lying in bed. Appears comfortable.no appreciable change from yesterday SKIN: Warm and dry. HEAD: Normocephalic. EYES: No scleral icterus. No injection or drainage. NECK: Supple, trachea midline. No JVD. CARDIOVASCULAR: Regular rate and rhythm without murmurs, gallops, or rubs. RESPIRATORY: Breath sounds equal bilaterally. No accessory muscle use. GASTROINTESTINAL: Abdomen soft, nondistended. Patient does have mild tenderness to palpation bilateral lower quadrants as yesterday. Hypoactive bowel sounds. No rebound or guarding. MUSCULOSKELETAL: No cyanosis, or edema. BACK: Nontender without obvious deformity. No CVA tenderness. A/P Assessment and Plan 04/28/17 //Hypokalemia. Potassium 3.1. Replaced. //Perforated diverticulitis is. Continue broad-spectrum antibiotics. -Discharge when cleared by surgical service. This is a pleasant 46-year-old female with past medical history which includes situational anxiety/depression, migraine headaches treated with Topamax, DVT 2008 secondary to Abby use and diverticulitis first diagnosed in 2014. Patient has had a flare up of diverticulitis which began approximately February 2017 she has tried 2 rounds of outpatient antibiotics with recurrence and is now here for further treatment. //Diverticulitis with perforated sigmoid diverticulitis //Diverticulitis failed outpatient therapy -C reactive protein 12.40 -CT abdominal and pelvis reviewed and reveals: 1. Perforated sigmoid diverticulitis without definite abscess formation. 2. Hemangioma in the liver. 3. Mild splenomegaly. -Nothing by mouth -Consult colorectal surgery patient had appointment with Dr. Toledo on Wednesday -Aztreonam 2 g IV every 8 hours, Flagyl 500 mg IV every 8 hours, and clinda. //Anxiety/depression stable- Stable Continue home //migraine headaches- Stable Continue Topamax //DVT prophylaxis with TEDs and SCDs. Anticoagulation as per surgical service. Discharge Planning when cleared by general surgery. Lion Blas MD Apr 29, 2017 14:21
[2017-04-29] MEDS ORDERED: PHARMACY ORDERED LAB ONE (14:45)
[2017-04-29] MEDS: SODIUM CHLOR 0.9% 1000 ML INJ 1,000 ML IV SCH (15:15)
[2017-04-29] MEDS: D5-1/2 NS + KCL 20 MEQ INJ 1,000 ML IV SCH (16:32)
--- NOTE | 2017-04-29 17:48 | HHI.PR ---
Subjective Remarks Diverticulitis with microperforation Still describes severe pain, localized, as stool moves through Objective Vital Signs Date Time Temp Pulse Resp B/P Pulse Ox O2 Delivery O2 Flow Rate FiO2 04/29/17 16:00 96.3 79 17 119/71 97 04/29/17 12:00 97.7 86 17 119/68 97 04/29/17 08:00 97.1 96 17 123/65 97 04/29/17 04:00 98.0 96 22 122/76 96 04/29/17 00:36 100 04/29/17 00:00 98.0 95 22 162/93 96 04/28/17 20:00 98.6 99 22 129/78 97 I/O 04/28/17 04/28/17 04/28/17 04/29/17 04/29/17 04/29/17 06:59 14:59 22:59 06:59 14:59 22:59 Intake Total 1269 ml 0 ml 2014 ml 566 ml Output Total 500 ml Balance 1269 ml 0 ml 2014 ml 66 ml Intake Oral 0 ml 0 ml 0 ml 0 ml IV Total 1269 ml 2014 ml 566 ml Output Urine Total 500 ml # Voids 2 6 4 2 # Bowel Movements 5 4 4 Result Diagram: 04/29/17 0607 04/29/17 0607 Objective Remarks Abdomen soft, nondistended pain more localized Assessment and Plan Assessment and Plan KUB - NBGP WBC's wnl try full liquids Pushpa Maravilla MD Apr 29, 2017 17:48
[2017-04-29] MEDS: TOPIRAMATE 25 MG TAB PO SCH (21:54)
[2017-04-30] VITALS (7 sets, daily range): BP systolic 110–124; BP diastolic 61–76; PULSE 73–98; RESP 16–17; TEMP 96.8–98.2; O2SAT 96–99
[2017-04-30] MEDS: POLYETHYLENE GLYCOL 17 GM PKG PO SCH ×3 (00:06→18:27)
[2017-04-30] MEDS: SODIUM CHLOR 0.9% 1000 ML INJ 1,000 ML IV SCH ×2 (00:10→10:39)
[2017-04-30] MEDS: CLINDAMYCIN INJ 600 MG in SODIUM CHLORIDE 0.9% INJ 100 ML IV SCH ×3 (05:27→16:00)
[2017-04-30] MEDS: AZTREONAM INJ 2,000 MG in SODIUM CHLORIDE 0.9% INJ 100 ML IV SCH (06:06)
[2017-04-30] MEDS: busPIRone HCL 5 MG TAB PO SCH ×2 (10:39→21:43)
--- NOTE | 2017-04-30 12:01 | HHI.PR ---
Subjective Remarks Diverticulitis with microperforation Tolerated full liquids Objective Vital Signs Date Time Temp Pulse Resp B/P Pulse Ox O2 Delivery O2 Flow Rate FiO2 04/30/17 08:00 98.2 73 16 111/61 96 04/30/17 04:00 97.1 86 16 124/74 97 04/30/17 00:00 98.0 81 16 110/68 97 04/29/17 21:50 74 04/29/17 20:00 97.7 102 18 126/72 96 04/29/17 16:00 96.3 79 17 119/71 97 I/O 04/29/17 04/29/17 04/29/17 04/30/17 04/30/17 04/30/17 07:00 15:00 23:00 07:00 15:00 23:00 Intake Total 2013 ml 566 ml 739 ml 964 ml Output Total 500 ml 300 ml Balance 2014 ml 66 ml 439 ml 964 ml Intake Oral 0 ml 0 ml 240 ml 240 ml IV Total 2013 ml 566 ml 499 ml 724 ml Output Urine Total 500 ml 300 ml # Voids 2 2 # Bowel Movements 4 0 0 Result Diagram: 04/29/17 0607 04/29/17 0607 Objective Remarks Abdomen soft, nondistended pain localized, seems less Assessment and Plan Assessment and Plan Advance diet Change to PO antibiotics Hopefully home soon Pushpa Maravilla MD Apr 30, 2017 12:01
[2017-04-30] MEDS: CLINDAMYCIN 150 MG CAP PO SCH ×3 (14:06→21:50)
[2017-04-30] MEDS: LEVOFLOXACIN 750 MG TAB PO SCH (14:06)
[2017-04-30] MEDS: SODIUM CHLORIDE 0.9% FLUSH 10 ML FLUSH IV FLUSH SCH ×2 (18:27→21:42)
[2017-04-30] MEDS: TOPIRAMATE 25 MG TAB PO SCH (21:43)
--- NOTE | 2017-04-30 23:59 | HHI.PR ---
Subjective Remarks Patient seen this morning around 11 AM. walking around.. denies any chest pain or shortness of breath. Nausea improved. ate full liquid breakfast.Feeling a little better. Objective Vital Signs Date Time Temp Pulse Resp B/P Pulse Ox O2 Delivery O2 Flow Rate FiO2 04/30/17 20:00 97.7 93 16 120/76 99 04/30/17 16:00 96.8 81 17 112/69 97 04/30/17 12:00 97.5 85 17 111/66 97 04/30/17 08:00 98.2 73 16 111/61 96 04/30/17 04:00 97.1 86 16 124/74 97 04/30/17 00:00 98.0 81 16 110/68 97 I/O 04/29/17 04/29/17 04/29/17 04/30/17 04/30/17 04/30/17 07:00 15:00 23:00 07:00 15:00 23:00 Intake Total 2013 ml 566 ml 739 ml 964 ml 380 ml Output Total 500 ml 300 ml 400 ml Balance 2013 ml 66 ml 439 ml 964 ml -20 ml Intake Oral 0 ml 0 ml 240 ml 240 ml 380 ml IV Total 2013 ml 566 ml 499 ml 724 ml Output Urine Total 500 ml 300 ml 400 ml # Voids 2 2 # Bowel Movements 4 0 0 0 Result Diagram: 04/29/1760604/29/17606 Objective Remarks GENERAL: patientattending up in room. Appears comfortable.no appreciable change from yesterday SKIN: Warm and dry. HEAD: Normocephalic. EYES: No scleral icterus. No injection or drainage. NECK: Supple, trachea midline. No JVD. CARDIOVASCULAR: Regular rate and rhythm without murmurs, gallops, or rubs. RESPIRATORY: Breath sounds equal bilaterally. No accessory muscle use. GASTROINTESTINAL: Abdomen soft, nondistended. Patient does have mild tenderness to palpation bilateral lower quadrants as yesterday. Hypoactive bowel sounds. No rebound or guarding. MUSCULOSKELETAL: No cyanosis, or edema. BACK: Nontender without obvious deformity. No CVA tenderness. A/P Assessment and Plan 04/30/17 //Hypokalemia. Potassium 3.1 yesterday.. Replaced yesterday. Labs ordered for this morning, however never done. Follow-up in the morning. //Perforated diverticulitis is. Continue broad-spectrum antibiotics. -Discharge when cleared by surgical service. This is a pleasant 46-year-old female with past medical history which includes situational anxiety/depression, migraine headaches treated with Topamax, DVT 2008 secondary to Abby use and diverticulitis first diagnosed in 2014. Patient has had a flare up of diverticulitis which began approximately February 2017 she has tried 2 rounds of outpatient antibiotics with recurrence and is now here for further treatment. //Diverticulitis with perforated sigmoid diverticulitis //Diverticulitis failed outpatient therapy -C reactive protein 12.40 -CT abdominal and pelvis reviewed and reveals: 1. Perforated sigmoid diverticulitis without definite abscess formation. 2. Hemangioma in the liver. 3. Mild splenomegaly. -Nothing by mouth -Consult colorectal surgery patient had appointment with Dr. Toledo on Wednesday -Aztreonam 2 g IV every 8 hours, Flagyl 500 mg IV every 8 hours, and clinda. //Anxiety/depression stable- Stable Continue home //migraine headaches- Stable Continue Topamax //DVT prophylaxis with TEDs and SCDs. Anticoagulation as per surgical service. Discharge Planning when cleared by general surgery. Lion Blas MD Apr 30, 2017 23:59
[2017-05-01] VITALS: BP 114/72; PULSE 90; RESP 16; TEMP 98.3; O2SAT 97
[2017-05-01] MEDS: CLINDAMYCIN INJ 600 MG in SODIUM CHLORIDE 0.9% INJ 100 ML IV SCH ×3 (00:27→08:57)
[2017-05-01] MEDS: NS + KCL 20 MEQ INJ 1,000 ML IV SCH ×2 (00:27→09:12)
[2017-05-01] MEDS: POLYETHYLENE GLYCOL 17 GM PKG PO SCH ×3 (00:44→16:39)
[2017-05-01] MEDS: CLINDAMYCIN 150 MG CAP PO SCH ×3 (06:10→16:55)
[2017-05-01 07:37] LABS: AUTOMATED NEUTROPHIL # 4.5 TH/MM3 (1.8-7.7); BASOPHIL % 0.4 % (0.0-2.0); EOSINOPHIL # 0.1 TH/MM3 (0-0.4); EOSINOPHIL % 2.1 % (0.0-4.0); HEMATOCRIT 33.9 % (35.0-46.0); HEMO FLAGS DIFF FINAL; LYMPH % 26.5 % (9.0-44.0); LYMPHOCYTE # 1.9 TH/MM3 (1.0-4.8); MEAN CELL VOLUME 86.5 FL (80.0-100.0); MEAN CORPUSCULAR HGB CONC 34.6 % (32.0-36.0); MONO % 7.6 % (0.0-8.0); NEUT % 63.4 % (16.0-70.0); PLATELET COUNT 305 TH/MM3 (150-450); RED BLOOD COUNT 3.92 MIL/MM3 (4.00-5.30); RED CELL DISTRIBUTION WIDTH 13.5 % (11.6-17.2); WHITE BLOOD COUNT 7.2 TH/MM3 (4.0-11.0)
[2017-05-01 07:50] LABS: BICARBONATE 20.6 MEQ/L (21.0-32.0); POTASSIUM 3.5 MEQ/L (3.5-5.1)
[2017-05-01 08:00] VITALS: BP 112/66; PULSE 86; RESP 16; TEMP 97; O2SAT 96
[2017-05-01] MEDS: SODIUM CHLORIDE 0.9% FLUSH 10 ML FLUSH IV FLUSH SCH ×2 (09:00→20:12)
[2017-05-01] MEDS: busPIRone HCL 5 MG TAB PO SCH ×2 (09:12→20:09)
--- NOTE | 2017-05-01 11:36 | HHI.PR ---
Subjective Remarks C/O pain LLQ. Unable to take pain meds due to confused feeling. Will give Tylenol for pain. No N or V. Stools loose as expected with Diverticulitis. Objective Vital Signs Date Time Temp Pulse Resp B/P Pulse Ox O2 Delivery O2 Flow Rate FiO2 05/01/17 08:00 97.0 86 16 112/66 96 05/01/17 00:00 98.3 90 16 114/72 97 04/30/17 21:40 98 04/30/17 20:00 97.7 93 16 120/76 99 04/30/17 16:00 96.8 81 17 112/69 97 04/30/17 12:00 97.5 85 17 111/66 97 I/O 04/30/17 04/30/17 04/30/17 05/01/17 05/01/17 05/01/17 06:59 14:59 22:59 06:59 14:59 22:59 Intake Total 1204 ml 380 ml 825 ml Output Total 300 ml 400 ml 250 ml Balance 904 ml -20 ml 575 ml Intake Oral 480 ml 380 ml 480 ml IV Total 724 ml 345 ml Output Urine Total 300 ml 400 ml 250 ml # Voids 2 3 # Bowel Movements 0 0 0 Result Diagram: 05/01/1734 05/01/17633 Objective Remarks VS-S WBC down. Abd : very soft, no guarding, minimal pain LLQ Assessment and Plan Assessment and Plan Much improved although c/o pain because unable to take pain meds D/c tele, Home soon on PO antibiotics probably for a couple more weeks. May be able to stop Cleocin and just use Levaquin for a longer period. May need surgery but would like to do when Diverticulitis is quiet to allow anastamosis. Discussed with patient at length. Oneil Herbert MD May 01, 2017 11:36
[2017-05-01 12:00] VITALS: BP 183/83; PULSE 94; RESP 18; TEMP 96.6; O2SAT 96
[2017-05-01] MEDS: LEVOFLOXACIN 750 MG TAB PO SCH (12:53)
[2017-05-01 16:00] VITALS: BP 115/69; PULSE 85; RESP 16; TEMP 96.8; O2SAT 96
[2017-05-01] MEDS: ONDANSETRON HCL 4 MG/2 ML VIAL IVP PRN (16:55)
--- NOTE | 2017-05-01 17:32 | RADRPT ---
EXAM DATE/TIME: 05/01/2017 16:57 [facility] COMPARISON: No previous studies available for comparison. INDICATIONS : Right arm swelling. MEDICAL HISTORY : Deep venous thrombosis. Gastroesophageal reflux disease. Inflammatory bowel disease. Diverticulitis. Migraines. . Arthritis. Back pain. Depression. Anxiety. SURGICAL HISTORY : Tonsillectomy. Left shoulder surgery. Left breast lumpectomy. ENCOUNTER: Initial ACUITY: 1 day PAIN SCORE: 1/10 LOCATION: Right arm. FINDINGS: The cephalic vein is noncompressible and contains intraluminal filling defect. There is spontaneous flow documented in the brachial, basilic, axillary, and subclavian veins. The v essels are compressible and augmentation response is documented. No filling defects are seen. The f low is phasic with respiration. Direction of flow in the jugular vein is caudal. CONCLUSION: Superficial venous thrombosis involving the cephalic vein. No evidence of DVT. Juan Carlos Degroot MD on May 01, 2017 at 17:29 Board Certified Radiologist. This report was verified electronically.
[2017-05-01 20:00] VITALS: BP 117/69; PULSE 101; RESP 18; TEMP 98.5; O2SAT 97
[2017-05-01] MEDS: TOPIRAMATE 25 MG TAB PO SCH (20:10)
--- NOTE | 2017-05-01 23:58 | HHI.PR ---
Subjective Remarks Patient seen this morning around 11 AM. lying in bed. Reports that she continues to have severe intermittent abdominal pain. Denies any chest pain shortness breath Objective Vital Signs Date Time Temp Pulse Resp B/P Pulse Ox O2 Delivery O2 Flow Rate FiO2 05/01/17 20:00 98.5 101 18 117/69 97 05/01/17 16:00 96.8 85 16 115/69 96 05/01/17 12:00 96.6 94 18 183/83 96 05/01/17 08:00 97.0 86 16 112/66 96 05/01/17 00:00 98.3 90 16 114/72 97 I/O 04/30/17 04/30/17 04/30/17 05/01/17 05/01/17 05/01/17 06:59 14:59 22:59 06:59 14:59 22:59 Intake Total 1204 ml 380 ml 825 ml 865 ml 168 ml Output Total 300 ml 400 ml 250 ml Balance 904 ml -20 ml 575 ml 865 ml 168 ml Intake Oral 480 ml 380 ml 480 ml 440 ml IV Total 724 ml 345 ml 425 ml 168 ml Output Urine Total 300 ml 400 ml 250 ml # Voids 2 3 4 2 # Bowel Movements 0 0 0 3 Result Diagram: 05/01/1763305/01/17633 Objective Remarks GENERAL: Appears comfortable.no appreciable change from yesterday SKIN: Warm and dry. HEAD: Normocephalic. EYES: No scleral icterus. No injection or drainage. NECK: Supple, trachea midline. No JVD. CARDIOVASCULAR: Regular rate and rhythm without murmurs, gallops, or rubs. RESPIRATORY: Breath sounds equal bilaterally. No accessory muscle use. GASTROINTESTINAL: Abdomen soft, nondistended. Patient does have mild tenderness to palpation bilateral lower quadrants as yesterday. Hypoactive bowel sounds. No rebound or guarding. MUSCULOSKELETAL: No cyanosis, or edema. BACK: Nontender without obvious deformity. No CVA tenderness. A/P Assessment and Plan 05/01/17 //Hypokalemia. Potassium 3.5. Resolved after placement. //Perforated diverticulitis. Continue broad-spectrum antibiotics. -Discharge when cleared by surgical service. This is a pleasant 46-year-old female with past medical history which includes situational anxiety/depression, migraine headaches treated with Topamax, DVT 2008 secondary to Abby use and diverticulitis first diagnosed in 2014. Patient has had a flare up of diverticulitis which began approximately February 2017 she has tried 2 rounds of outpatient antibiotics with recurrence and is now here for further treatment. //Diverticulitis with perforated sigmoid diverticulitis //Diverticulitis failed outpatient therapy -C reactive protein 12.40 -CT abdominal and pelvis reviewed and reveals: 1. Perforated sigmoid diverticulitis without definite abscess formation. 2. Hemangioma in the liver. 3. Mild splenomegaly. -Nothing by mouth -Consult colorectal surgery patient had appointment with Dr. Toledo on Wednesday -Aztreonam 2 g IV every 8 hours, Flagyl 500 mg IV every 8 hours, and clinda. //Anxiety/depression stable- Stable Continue home //migraine headaches- Stable Continue Topamax //DVT prophylaxis with TEDs and SCDs. Anticoagulation as per surgical service. Discharge Planning when cleared by general surgery. Lion Blas MD May 01, 2017 23:58 Lion Blas MD May 01, 2017 23:58
[2017-05-02] VITALS: BP 104/58; PULSE 91; RESP 18; TEMP 97.2; O2SAT 95
[2017-05-02] MEDS: POLYETHYLENE GLYCOL 17 GM PKG PO SCH ×2 (01:00→07:51)
[2017-05-02] MEDS: CLINDAMYCIN 150 MG CAP PO SCH ×2 (01:52→06:47)
[2017-05-02] MEDS: SODIUM CHLORIDE 0.9% FLUSH 10 ML FLUSH IV FLUSH SCH (07:51)
[2017-05-02] MEDS: busPIRone HCL 5 MG TAB PO SCH (07:51)
[2017-05-02] MEDS: NS + KCL 20 MEQ INJ 1,000 ML IV SCH (07:52)
[2017-05-02 08:00] VITALS: BP 115/65; PULSE 80; RESP 15; TEMP 96.9; O2SAT 96
--- NOTE | 2017-05-02 08:55 | HHI.DCPOC ---
Discharge Care Plan Diagnosis: (1) Acute diverticulitis Your Health Problems Are: Appetite Changes Irregular Bowel Function Exercise Tolerance Goals to Promote Your Health * To prevent worsening of your condition and complications * To maintain your health at the optimal level Directions to Meet Your Goals Take your medications as prescribed Follow your dietary instruction Follow activity as directed Keep your appointments as scheduled Take your immunizations and boosters as scheduled If your symptoms worsen call your PCP, if no PCP go to Urgent Care Center or Emergency Room Smoking is Dangerous to Your Health. Avoid second hand smoke Call the 24-hour hour crisis hotline for domestic abuse at Oneil Herbert MD May 02, 2017 08:55
[2017-05-02] MEDS ORDERED: LEVA750T9 PO (10:55)
--- NOTE | 2017-05-02 23:01 | HHI.PR ---
Subjective Remarks Patient says she is feeling better today. Denies any chest pain or shortness of breath. Reports nausea has improved. Reports abdominal discomfort improving. Feels comfortable going home. Objective Vital Signs Date Time Temp Pulse Resp B/P Pulse Ox O2 Delivery O2 Flow Rate FiO2 05/02/17 08:00 96.9 80 15 115/65 96 05/02/17 00:00 97.2 91 18 104/58 95 I/O 05/01/17 05/01/17 05/01/17 05/02/17 05/02/17 05/02/17 07:00 15:00 23:00 07:00 15:00 23:00 Intake Total 585 ml 865 ml 168 ml 300 ml Balance 585 ml 865 ml 168 ml 300 ml Intake Oral 240 ml 440 ml IV Total 345 ml 425 ml 168 ml 300 ml # Voids 3 4 2 # Bowel Movements 0 3 Result Diagram: 05/01/17 0634 05/01/17 0634 Imaging Last Impressions Upper Extremity Ultrasound 05/01/17 0000 Signed Impressions: Service Date/Time: Monday, May 01, 2017 16:57 - CONCLUSION: Superficial venous thrombosis involving the cephalic vein. No evidence of DVT. Juan Carlos Degroot MD Abdomen X-Ray 04/28/17 0000 Signed Impressions: Service Date/Time: Friday, April 28, 2017 10:29 - CONCLUSION: Normal examination. Oneil Arreola MD Chest X-Ray 04/26/17 0734 Signed Impressions: Service Date/Time: Wednesday, April 26, 2017 07:40 - CONCLUSION: No evidence of acute cardiopulmonary disease. Oneil Be MD Abdomen/Pelvis CT 04/26/17 0413 Signed Impressions: Service Date/Time: Wednesday, April 26, 2017 06:37 - CONCLUSION: 1. Perforated sigmoid diverticulitis without definite abscess formation. 2. Hemangioma in the liver. 3. Mild splenomegaly. Kendrick Peace MD Objective Remarks GENERAL: Appears comfortable.alert and oriented 3. SKIN: Warm and dry. HEAD: Normocephalic. EYES: No scleral icterus. No injection or drainage. NECK: Supple, trachea midline. No JVD. CARDIOVASCULAR: Regular rate and rhythm without murmurs, gallops, or rubs. RESPIRATORY: Breath sounds equal bilaterally. No accessory muscle use. GASTROINTESTINAL: Abdomen soft, nondistended. Patient does have mild tenderness to palpation bilateral lower quadrants as yesterday. Hypoactive bowel sounds. No rebound or guarding. MUSCULOSKELETAL: No cyanosis, or edema. BACK: Nontender without obvious deformity. No CVA tenderness. A/P Assessment and Plan 05/02/17 //superficial venous thrombosis right arm. ultrasound reviewed. Recommend warm compresses diverticulitis.Patient feeling somewhat better. Comfortable going home. Discharged home. Surgical service has written for extended course of antibiotics with Levaquin and clindamycin. Follow-up surgical service and primary care as outpatient. This is a pleasant 46-year-old female with past medical history which includes situational anxiety/depression, migraine headaches treated with Topamax, DVT 2008 secondary to Abby use and diverticulitis first diagnosed in 2014. Patient has had a flare up of diverticulitis which began approximately February 2017 she has tried 2 rounds of outpatient antibiotics with recurrence and is now here for further treatment. //Diverticulitis with perforated sigmoid diverticulitis //Diverticulitis failed outpatient therapy -C reactive protein 12.40 -CT abdominal and pelvis reviewed and reveals: 1. Perforated sigmoid diverticulitis without definite abscess formation. 2. Hemangioma in the liver. 3. Mild splenomegaly. -Nothing by mouth -Consult colorectal surgery patient had appointment with Dr. Toledo on Wednesday -Discharged home on antibiotics as per surgical service. //Anxiety/depression stable- Stable Continue home //migraine headaches- Stable Continue Topamax //DVT prophylaxis with TEDs and SCDs. Anticoagulation as per surgical service. Discharge Planning discharged home Lion Blas MD May 02, 2017 23:00
== END 2017-05-02 12:03 | disposition home or self-care (01) | DRG 392 ==
LOC: NEPC 03:43 → NEDA 07:32 → N07B 18:11
PROVIDERS: ADMIT Internal Medicine; ATTEND Internal Medicine
DX: K57.20 Diverticulitis of large intestine with perforation and abscess without bleeding (principal); R16.1 Splenomegaly, not elsewhere classified; D18.03 Hemangioma of intra-abdominal structures; F41.8 Other specified anxiety disorders; K21.9 Gastro-esophageal reflux disease without esophagitis; G43.909 Migraine, unspecified, not intractable, without status migrainosus; Z86.718 Personal history of other venous thrombosis and embolism; R35.0 Frequency of micturition; R39.15 Urgency of urination; R50.9 Fever, unspecified; R11.0 Nausea; M19.90 Unspecified osteoarthritis, unspecified site
CPT/HCPCS: 71010; 74000; 74177; 80048; 80053; 80069; 80202; 81001; 83036; 83605; 83690; 83735; 84100; 84439; 84443; 84703; 85025; 85610; 86140; 87040; 93005; 93971; 96361; 96365; 96375; J1170; J2270; J2405; J3370; J3480; J7030; J7040; J7050; Q9967

== ENCOUNTER 2017-07-23 06:24 | Inpatient (IN) | payer BC ==
[~2017-07-23] VITALS: Ht 172.7 cm; Wt 94.2 kg
[~2017-07-23 06:24] MED LIST changes: -CIPR500T2 PO; -HYDR-3533 PO; +LEVA750T9 PO; -LEVO1TAB50 PO; +LEVO5TAB8 PO; -METR-1 PO; -PERC5TAB12 PO; -TOPA25TA8 PO; +TOPI25 PO
[2017-07-23] MEDS ORDERED: FLUT1SPR5 EACH NARE ×2 (07:00)
[2017-07-23] MEDS ORDERED: METOPROLOL TARTRATE 25 MG TAB PO PRN (07:00)
[2017-07-23] MEDS ORDERED: CHLORHEXIDINE GLUCONATE 2 % 1 PACK (2 CLOTHS) TOPICAL PRN (07:00)
[2017-07-23] MEDS ORDERED: METRONIDAZOLE 500 MG/100 ML ISONTONIC SOLN IV SCH (07:00)
[2017-07-23] MEDS ORDERED: INSULIN HUMAN REGULAR 1,000 UNITS/10 ML VIAL SQ PRN (07:00)
[2017-07-23] MEDS ORDERED: POVIDONE IODINE 5% (ANTISEPSIS KIT) 4 APPLICATIONS EACH NARE PRN (07:00)
[2017-07-23] MEDS ORDERED: SODIUM CHLORID 0.9% 500 ML IV PRN (07:00)
[2017-07-23] MEDS ORDERED: ceFAZolin 2 GM PREMIX 50 ML IV SCH (07:00)
[2017-07-23] MEDS ORDERED: LACTATED RINGER'S 1000 ML IV PRN (07:00)
[2017-07-23] MEDS ORDERED: DEXT 5%-NACL 0.9% 1000 ML INJ 1,000 ML IV SCH (07:00)
--- NOTE | 2017-07-23 07:36 | PD.HP.UP ---
H&P Update Note The Pre-Admit History and Physical Examination regarding the above named patient was reviewed (including, but not limited to, vital signs, heart, lungs, co-morbid conditions), and upon re-examination it is noted that: the patient's condition has not significantly changed since the last examination. Pushpa Maravilla MD Jul 23, 2017 07:36
--- NOTE | 2017-07-23 09:32 | PD.OP ---
Operative Report Date of Surgery: Jul 23, 2017 Preoperative Diagnosis: (1) Diverticulosis Postoperative Diagnosis: (1) Diverticulosis Procedure: Cystoscopy and placement of bilateral ureteral catheters Anesthesia: General Surgeon: Rosendo Duarte [employer] Line Technician(s): None Operation and Findings: Indication for procedure: Consult intraoperatively to pass bilateral ureteral catheters to aid in visualization of this patient's ureters during her colorectal procedure. Urologic surgery procedures in detail: Concurrent with the colorectal surgeon I proceeded with cystoscopy and placement of bilateral ureteral catheters. Initially cystoscopic evaluation was performed utilizing the rigid cystoscope with a 22 Vincentian and 30 lens. Both right and left ureteral orifices were in correct anatomic position effluxing clear yellow urine, though nobody mucosal lesions, calculi or diverticula formation. There were no areas of inflammation or suspicious areas for fistula formation. I then advanced a sensor 0.035 wire up the patient's left ureter distal small amount of resistance was met. A 6 Vincentian open-ended catheter was advanced over this wire 25 cm in a cephalad direction. The guidewire was then withdrawn and reintroduced to secondary side by the cystoscope and in similar fashion the contralateral side was accomplished. With both catheters in place the cystoscope and wire were withdrawn and a 16 Vincentian 10 cc Simmons catheter was placed. Both ureteral catheters were anchored to the [place] via a connector and all 3 catheters placed to gravity drainage. This completes urologic surgery portion of combined procedures on this patient. Rosendo Duarte MD Jul 23, 2017 09:32
[2017-07-23] MEDS ORDERED: VANCOMYCIN HCL 1000 MG VIAL IV ONE (11:01)
[2017-07-23] MEDS ORDERED: ROCURONIUM INJ 50 MG/5 ML SYRINGE IV PUSH ONE (12:48)
[2017-07-23] MEDS ORDERED: ENALAPRILAT 1.25 MG/ML VIAL IV PUSH PRN (14:00)
[2017-07-23] MEDS ORDERED: SODIUM CHLORIDE 0.9% FLUSH 5 ML FLUSH IVF PRN (14:00)
[2017-07-23] MEDS ORDERED: ACETAMINOPHEN 325 MG TAB PO PRN (14:00)
[2017-07-23] MEDS ORDERED: ACETAMINOPHEN/HYDROcodone 325 MG/5 MG TAB PO PRN (14:00)
[2017-07-23] MEDS ORDERED: MORPHINE SULFATE 30 MG/30 ML PCA IV SCH (14:00)
[2017-07-23] MEDS ORDERED: BENZOCAINE 6 MG/MENTHOL 10 MG LOZENGE BUCCAL PRN (14:00)
[2017-07-23] MEDS ORDERED: POTASSIUM CHLOR 40 MEQ PREMIX 100 ML IV PRN (14:00)
[2017-07-23] MEDS ORDERED: NALOXONE HCL 0.4 MG/ML AMP IV PUSH PRN (14:00)
[2017-07-23] MEDS ORDERED: ENALAPRILAT 2.5 MG/2 ML VIAL IV PUSH PRN (14:00)
[2017-07-23] MEDS ORDERED: diphenhydrAMINE HCL 50 MG/ML VIAL IV PUSH PRN (14:00)
[2017-07-23] MEDS ORDERED: POTASSIUM CHLOR 20 MEQ PREMIX 100 ML IV PRN (14:00)
[2017-07-23] MEDS ORDERED: DO NOT ADM ANY ANTICOAGULANT DRUGS PRN (14:11)
[2017-07-23] MEDS ORDERED: Post-op Orders (for Pharmacy) MISC XX ONE (14:20)
[2017-07-23] MEDS ORDERED: *MEPERIDINE 25 MG INJ VIAL PERIprocedural Use ONLY ONE (14:22)
[2017-07-23] MEDS: SODIUM CHLORIDE 0.9% FLUSH 5 ML FLUSH IVF SCH ×2 (14:30→21:00)
[2017-07-23] MEDS: KETOROLAC TROMETHAMINE 30 MG/ML (IVP) VIAL IVP SCH ×2 (14:30→20:11)
[2017-07-23] MEDS: D5-NS + KCL 20 MEQ INJ 1,000 ML IV SCH ×2 (14:35→21:38)
[2017-07-23 15:05] LABS: AUTOMATED NEUTROPHIL # 16.1 TH/MM3 (1.8-7.7); BASOPHIL % 0.1 % (0.0-2.0); HEMOGLOBIN 12.7 GM/DL (11.6-15.3); LYMPH % 4.4 % (9.0-44.0); LYMPHOCYTE # 0.8 TH/MM3 (1.0-4.8); MEAN CELL VOLUME 87.2 FL (80.0-100.0); MEAN CORPUSCULAR HEMOGLOBIN 29.1 PG (27.0-34.0); MEAN CORPUSCULAR HGB CONC 33.3 % (32.0-36.0); MEAN PLATELET VOLUME 7.4 FL (7.0-11.0); MONO % 2.1 % (0.0-8.0); MONOCYTE # 0.4 TH/MM3 (0-0.9); NEUT % 93.4 % (16.0-70.0); PLATELET COUNT 242 TH/MM3 (150-450); RED BLOOD COUNT 4.35 MIL/MM3 (4.00-5.30); RED CELL DISTRIBUTION WIDTH 13.9 % (11.6-17.2); WHITE BLOOD COUNT 17.2 TH/MM3 (4.0-11.0)
[2017-07-23 15:28] LABS: BICARBONATE 18.9 MEQ/L (21.0-32.0); CALCIUM 7.1 MG/DL (8.5-10.1); CREATININE 0.88 MG/DL (0.50-1.00)
[2017-07-23] MEDS ORDERED: *HYDROmorphone PF 1 MG VIAL PERIprocedural Use ONLY ONE (15:29)
[2017-07-23] MEDS: PCA - TOTAL MG MORPHINE DELIVERED PER SHIFT SCH ×2 (15:30→22:00)
[2017-07-23 15:46] LABS: CALCIUM-PROTEIN CORRECTED 7.5 MG/DL (8.5-10.1); TOTAL PROTEIN 6.4 GM/DL (6.4-8.2)
[2017-07-23] MEDS: metroNIDAZOLE 500 MG INJ 100 ML IV SCH (17:00)
[2017-07-23 19:00] VITALS: PULSE 76
[2017-07-23 19:17] VITALS: BP 112/70; PULSE 100; RESP 16; TEMP 97.9; O2SAT 98
[2017-07-23 20:00] VITALS: PULSE 92
[2017-07-23] MEDS: ONDANSETRON HCL 4 MG/2 ML VIAL IV PUSH PRN (20:11)
[2017-07-23 21:15] VITALS: PULSE 86
[2017-07-23 22:01] VITALS: PULSE 82
[2017-07-23] MEDS: VANCOMYCIN INJ 1,000 MG in SODIUM CHLOR 0.9% 250 ML INJ 250 ML IV SCH (23:33)
[2017-07-23 23:53] VITALS: BP 117/63; PULSE 78; PULSE 80; RESP 16; TEMP 98.3; O2SAT 98
[2017-07-24] VITALS (19 sets, daily range): BP systolic 102–136; BP diastolic 58–73; PULSE 2–99; RESP 16–18; TEMP 97.9–99.3; O2SAT 97–99
[2017-07-24] MEDS: metroNIDAZOLE 500 MG INJ 100 ML IV SCH ×2 (01:59→09:53)
[2017-07-24] MEDS: KETOROLAC TROMETHAMINE 30 MG/ML (IVP) VIAL IVP SCH ×4 (01:59→20:14)
[2017-07-24] MEDS: ONDANSETRON HCL 4 MG/2 ML VIAL IV PUSH PRN ×3 (01:59→15:50)
[2017-07-24 05:24] LABS: AUTOMATED NEUTROPHIL # 8.3 TH/MM3 (1.8-7.7); BASOPHIL % 0.1 % (0.0-2.0); EOSINOPHIL % 0.1 % (0.0-4.0); HEMATOCRIT 33.7 % (35.0-46.0); HEMOGLOBIN 11.6 GM/DL (11.6-15.3); LYMPH % 15.7 % (9.0-44.0); LYMPHOCYTE # 1.7 TH/MM3 (1.0-4.8); MEAN CELL VOLUME 87.9 FL (80.0-100.0); MEAN CORPUSCULAR HEMOGLOBIN 30.4 PG (27.0-34.0); MEAN CORPUSCULAR HGB CONC 34.5 % (32.0-36.0); MEAN PLATELET VOLUME 7.5 FL (7.0-11.0); MONO % 8.1 % (0.0-8.0); MONOCYTE # 0.9 TH/MM3 (0-0.9); PLATELET COUNT 193 TH/MM3 (150-450); RED BLOOD COUNT 3.83 MIL/MM3 (4.00-5.30); RED CELL DISTRIBUTION WIDTH 14.1 % (11.6-17.2); WHITE BLOOD COUNT 10.9 TH/MM3 (4.0-11.0)
[2017-07-24] MEDS: D5-NS + KCL 20 MEQ INJ 1,000 ML IV SCH ×3 (05:42→20:14)
[2017-07-24] MEDS: PCA - TOTAL MG MORPHINE DELIVERED PER SHIFT SCH (05:42)
[2017-07-24 05:57] LABS: BICARBONATE 20.7 MEQ/L (21.0-32.0); CREATININE 0.66 MG/DL (0.50-1.00)
[2017-07-24 06:11] LABS: CALCIUM-PROTEIN CORRECTED 7.7 MG/DL (8.5-10.1); TOTAL PROTEIN 5.7 GM/DL (6.4-8.2)
[2017-07-24] MEDS: SODIUM CHLORIDE 0.9% FLUSH 5 ML FLUSH IVF SCH ×2 (09:00→20:14)
[2017-07-24] MEDS: PANTOPRAZOLE SODIUM 40 MG VIAL IVP SCH (09:52)
--- NOTE | 2017-07-24 11:26 | HHI.PR ---
Subjective Remarks C/R Surg POD #1 afebrile, VSS UO good , stent dc'd Objective - Vital Signs Date Time Temp Pulse Resp B/P (MAP) Pulse Ox O2 Delivery O2 Flow Rate FiO2 07/24/17 10:54 21 07/24/17 10:00 90 07/24/17 07:15 98.5 18 107/65 (79) 98 07/23/17 17:00 Nasal Cannula 2 Result Diagram: 07/24/17 0458 07/24/17 0458 Objective Remarks PE alert Abd - soft, wound dry,min tympany Extr - c/o tingling both hands. pulses OK A/P Assessment and Plan Imp: stable post-op OOB PO slowly leave Francisco Sanz AM, MD Jul 24, 2017 11:26
[2017-07-24] MEDS: VANCOMYCIN INJ 1,000 MG in SODIUM CHLOR 0.9% 250 ML INJ 250 ML IV SCH (12:18)
[2017-07-24] MEDS: HEPARIN SODIUM - SQ 10,000 UNITS/ML VIAL SQ SCH (12:19)
--- NOTE | 2017-07-24 18:55 | MP ---
cc: CHUCK MARAVILLA M.D., DR. DATE OF SURGERY 07/23/17 PREOPERATIVE DIAGNOSIS Diverticulitis. POSTOPERATIVE DIAGNOSIS Diverticulitis and adhesions PROCEDURES 1. Robotic/laparoscopic extensive lysis of adhesions. 2. Robotic takedown of splenic flexure. 3. Robotic sigmoid colectomy. SURGEON Aubrey Maravilla MD CLINICAL APPLICATIONS MANAGER Bruce ANESTHESIA General per ET tube ESTIMATED BLOOD LOSS 150 mL OPERATIVE INDICATIONS The patient is a 46-year-old female with a history of repeated attacks of severe diverticulitis. OPERATIVE FINDINGS The patient's liver, gallbladder were visibly normal. Her right and left ovary were visibly normal and her uterus although somewhat large was symmetric and smooth and did not appear at all suspicious. The sigmoid colon was thickened phleg____ and adherent to the left pelvic sidewall. OPERATIVE COURSE The patient was brought to the operating room and placed in the supine position after induction of general anesthesia. The patient was placed in Robert stirrups and all bony prominences were carefully padded. Dr. Duarte came in and performed cystoscopy with placement of bilateral ureteral catheters, please see his operative note for details. A site was then chosen for the camera being located 2 cm above and to the right of the umbilicus. The 10-12 trocar was placed at this location under direct vision using laparoscope. CO2 insufflation was then undertaken and a brief abdominal survey was performed. The patient was noted to have adhesions of the omentum to the anterior abdominal wall of both in the left upper quadrant and in the left lower quadrant and pelvis, but nothing else that would preclude the robotic approach. A site was then chosen for the #1 port just inside the right anterior superior iliac spine. A 10-12 trocar was placed at this location under direct vision using the laparoscope. A #5 assist port was placed just under the right costal margin equal distance to the #1 and the camera port. The patient was hydroplaned with head down and slightly to the right and the adhesions of the omentum to the left lower quadrant and pelvis were dissected free using electrocautery. This allowed reversal of the omentum up-and-over the transverse colon. The small bowel was then brought up and out of the pelvis into the right and the bowel was evaluated. I did feel that it was necessary to take down the splenic flexure at this point so the remainder of the ports were then planned as follows. The #3 port was placed on line with the umbilicus and left anterior axillary line and the #2 port also a DaVinci was placed in the left mid clavicular line three fingerbreadths above the umbilical line. The remainder of the adhesions of the omentum to the anterior abdominal wall were then taken down using electrocautery and the robot was docked. The sigmoid colon retracted down and to the left and the mesentery on the right was scored. Dissection was continued in this plane posterior to the inferior hemorrhoidal vessels until the left ureter was clearly identified and swept away from the specimen. Dissection continued laterally to the left side wall as well as superiorly as far as possible with this orientation. Eventually, we had good mobility of the descending colon mesentery. A window was then made around the inferior hemorrhoidal vessels and a white load of the echelon stapler was brought onto the field and this was placed into the abdomen across the vessels, held for 30 seconds, fired and removed. Dissection then continued posteriorly down to the point just below the mid rectum and up and around the right side. At this point, it was necessary to dissect the sigmoid phlegmon off of the anterior abdominal wall and off of the adhesions to the left ovary and tube as well as the remainder of the bowel. Eventually, we were able to straighten out the bowel and get all these adhesions out of the way. Dissection continued down and around the left side of the rectum. A sponge stick was placed in the rectum and a site was chosen for division of the rectum just distal to the rectosigmoid junction. The mesentery at this level was divided using the harmonic scalpel and a reload blue of the echelon stapler was placed at this level. This was closed, held for 30 seconds, fired and removed. The 30 EEA stapler was then placed through the rectum but was not able to advance easily to the rectal stump so this was changed out for the 29 EEA stapler. The stapler was advanced through the anus and up to the rectal stump without any difficulty and laid nicely. A small amount of fibro-fatty tissue was cleared off the edge circumferentially using electrocautery. Dissection then continued up the left lateral abdominal wall freeing the descending colon from its lateral attachments. The omentum was then grasped and pulled away from the transverse colon and, using electrocautery dissection, was carried down into the lesser sac. Attempts were made to dissect up and around the splenic flexure but due to the port placement I was really not able to get good control or visibility. In addition, she had some oozing in this area so I did elect to redock the robot over the left shoulder. Once this was done, we had much better visibility and much better control. The posterior peritoneum just overlying the left kidney seemed to be a source of bleeding. This area was treated with electrocautery extensively and dusted with Zach. During this retraction of the descending colon, there was noted to be a small serosal tear on the mid transverse colon which was marked for later repair. Dissection continued then up and around the splenic flexure freeing the omentum and freeing posteriorly until we had full mobility of the distal transverse colon, descending colon, sigmoid colon and proximal rectum. At this point, the serosal tear was repaired in an interrupted fashion using 3-0 Vicryl and the bowel was measured. It came down nicely into the pelvis without any sign of tension. The robot was undocked. A 10-12 cm transverse incision was made in the suprapubic area and, using electrocautery, dissection was carried down to the fascia of the anterior abdominal wall. The anterior fascia was then divided using electrocautery the length of the skin incision. The medial fibers of the rectus abdominis muscle were then divided and the posterior fascia/peritoneum was then divided the length of the incision. A wound protector was then placed. The proximal stapled end of the bowel was then grasped and pulled up and out through the incision and a site was then chosen proximal to the area of inflammation. The mesentery at this level was divided and ligated using 0 Vicryl ties and a pursestring stapling device was placed off the bowel at this level. This was closed and the distal bowel was amputated and it was sent for pathology. The anvil from the 29 EEA stapler was placed into the cut end of bowel and the previously placed pursestring sutures were then secured and this was then reduced back into the peritoneal cavity. After retraction of the uterus, the 29 EEA stapler was advanced through the anus and up to the rectal stump without difficulty. The spike was advanced just anterior to the staple line. The anvil was into the spike being careful that the bowel was not twisted. The stapler was then closed being careful that none of the tubes or ovaries were pulled into the staple line. The stapler was closed, held for 30 seconds, fired and removed. The anastomosis appeared pink and healthy circumferentially and both anastomotic rings appeared to be complete. A small amount warm normal saline was placed into the pelvis and air was insufflated to the extent possible. Some gentle tension was noted on the anastomosis. Initially there was noted to be a small bubble of air, but I was not clear on where exactly it was coming from, if it was coming from the bowel at all. The air was desufflated to the extent possible. The anastomosis again examined with no visible abnormalities. Simple stay sutures were placed at the edges of the anastomosis where they intersected with the other staple line. Warm normal saline was placed into the pelvis again and the proximal bowel was occluded with pressure. Air was insufflated until tension was noted on the anastomosis with no sign of any leakage of the air. At this juncture, the air was desufflated to the extent possible and saline was suctioned out of the pelvis. The bowel lay in a nice orientation with no tension on it. The remainder of the peritoneal cavity showed no sign of any significant bleeding. The posterior fascia at the suprapubic incision was closed in a running fashion using #1 PDS and the anterior fascia was closed in a running fashion using #1 PDS. The wound was copiously irrigated with normal saline and the wound was closed. The skin was closed in a running subcuticular fashion using 3-0 Vicryl. CO2 insufflation was then resumed and the 10-12 port sites were closed using the crossbow device and 0 PDS suture. Just before exiting, the peritoneal cavity was examined and looked to be healthy with an anastomosis without undue tension. At was desufflated to the extent possible. The wounds were copiously irrigated. The previously placed fascial sutures were then secured. The skin was closed in an interrupted subcuticular fashion using 3-0 Vicryl. Steri-Strips and sterile dressings were applied. The right ureteral ureter was removed. All sponge, needle and instrument counts were correct and the patient was returned to the post anesthesia care in stable condition. MD ASHVIN Bello/ /1:56 PM /6:06 PM
[2017-07-25] VITALS: BP 106/64; PULSE 84; RESP 17; TEMP 97; O2SAT 97
[2017-07-25] MEDS: HEPARIN SODIUM - SQ 10,000 UNITS/ML VIAL SQ SCH ×2 (01:24→13:16)
[2017-07-25] MEDS: KETOROLAC TROMETHAMINE 30 MG/ML (IVP) VIAL IVP SCH ×4 (01:24→19:58)
[2017-07-25] MEDS: ONDANSETRON HCL 4 MG/2 ML VIAL IV PUSH PRN ×2 (01:24→07:39)
[2017-07-25 05:47] LABS: AUTOMATED NEUTROPHIL # 3.9 TH/MM3 (1.8-7.7); BASOPHIL % 0.3 % (0.0-2.0); EOSINOPHIL # 0.2 TH/MM3 (0-0.4); EOSINOPHIL % 2.6 % (0.0-4.0); HEMATOCRIT 33.7 % (35.0-46.0); HEMOGLOBIN 11.1 GM/DL (11.6-15.3); LYMPH % 26.6 % (9.0-44.0); LYMPHOCYTE # 1.6 TH/MM3 (1.0-4.8); MEAN CELL VOLUME 89.8 FL (80.0-100.0); MEAN CORPUSCULAR HEMOGLOBIN 29.5 PG (27.0-34.0); MEAN CORPUSCULAR HGB CONC 32.8 % (32.0-36.0); MEAN PLATELET VOLUME 7.5 FL (7.0-11.0); MONO % 6.9 % (0.0-8.0); MONOCYTE # 0.4 TH/MM3 (0-0.9); NEUT % 63.6 % (16.0-70.0); PLATELET COUNT 181 TH/MM3 (150-450); RED BLOOD COUNT 3.75 MIL/MM3 (4.00-5.30); RED CELL DISTRIBUTION WIDTH 14.3 % (11.6-17.2); WHITE BLOOD COUNT 6.1 TH/MM3 (4.0-11.0)
[2017-07-25 06:12] LABS: BICARBONATE 18.7 MEQ/L (21.0-32.0); CALCIUM 7.3 MG/DL (8.5-10.1); CREATININE 0.56 MG/DL (0.50-1.00)
[2017-07-25 06:26] LABS: CALCIUM-PROTEIN CORRECTED 8.1 MG/DL (8.5-10.1); TOTAL PROTEIN 5.7 GM/DL (6.4-8.2)
[2017-07-25] MEDS: SODIUM CHLORIDE 0.9% FLUSH 5 ML FLUSH IVF SCH ×2 (07:31→19:58)
[2017-07-25] MEDS: PANTOPRAZOLE SODIUM 40 MG VIAL IVP SCH (07:31)
[2017-07-25 08:00] VITALS: BP 136/71; PULSE 87; RESP 20; TEMP 98; O2SAT 97
[2017-07-25 09:00] VITALS: O2SAT 97
[2017-07-25] MEDS: D5-NS + KCL 20 MEQ INJ 1,000 ML IV SCH ×2 (09:44→19:58)
[2017-07-25] MEDS: ACETAMINOPHEN/HYDROcodone 325 MG/5 MG TAB PO PRN ×2 (10:30→18:44)
[2017-07-25 12:00] VITALS: BP 130/77; PULSE 89; RESP 20; TEMP 97.9; O2SAT 98
[2017-07-25 16:00] VITALS: BP 131/73; PULSE 95; RESP 21; TEMP 97.9; O2SAT 98
[2017-07-25 20:00] VITALS: BP 140/66; PULSE 101; RESP 17; TEMP 98.6; O2SAT 98
--- NOTE | 2017-07-25 21:33 | HHI.PR ---
Subjective Remarks C/R Surg POD #2 afebrile, VSS UO good , stent dc'd still painful Objective - Vital Signs Date Time Temp Pulse Resp B/P (MAP) Pulse Ox O2 Delivery O2 Flow Rate FiO2 07/25/17 20:00 98.6 101 17 140/66 (90) 98 07/25/17 09:00 21 07/23/17 17:00 Nasal Cannula 2 Result Diagram: 07/25/17 0416 07/25/17 0415 Objective Remarks PE alert Abd - soft, wound dry,min tympany Extr - c/o tingling both hands. pulses OK A/P Assessment and Plan Imp: stable post-op OOB PO slowly leave Francisco Sanz AM, MD Jul 25, 2017 21:33
[2017-07-26] VITALS: BP 136/66; PULSE 86; RESP 18; TEMP 98.5; O2SAT 96
[2017-07-26] MEDS: KETOROLAC TROMETHAMINE 30 MG/ML (IVP) VIAL IVP SCH ×2 (02:45→09:12)
[2017-07-26] MEDS: HEPARIN SODIUM - SQ 10,000 UNITS/ML VIAL SQ SCH ×2 (02:45→14:32)
[2017-07-26] MEDS: ACETAMINOPHEN/HYDROcodone 325 MG/5 MG TAB PO PRN ×2 (04:57→14:29)
[2017-07-26 08:00] VITALS: BP 122/83; PULSE 88; RESP 17; TEMP 98.1; O2SAT 98
[2017-07-26 09:12] LABS: AUTOMATED NEUTROPHIL # 4.2 TH/MM3 (1.8-7.7); BASOPHIL % 0.4 % (0.0-2.0); EOSINOPHIL # 0.2 TH/MM3 (0-0.4); EOSINOPHIL % 2.8 % (0.0-4.0); HEMATOCRIT 32.7 % (35.0-46.0); HEMOGLOBIN 11.2 GM/DL (11.6-15.3); LYMPH % 22.4 % (9.0-44.0); LYMPHOCYTE # 1.4 TH/MM3 (1.0-4.8); MEAN CELL VOLUME 87.8 FL (80.0-100.0); MEAN CORPUSCULAR HEMOGLOBIN 30.1 PG (27.0-34.0); MEAN CORPUSCULAR HGB CONC 34.3 % (32.0-36.0); MEAN PLATELET VOLUME 7.7 FL (7.0-11.0); MONO % 5.5 % (0.0-8.0); MONOCYTE # 0.3 TH/MM3 (0-0.9); NEUT % 68.9 % (16.0-70.0); PLATELET COUNT 195 TH/MM3 (150-450); RED BLOOD COUNT 3.73 MIL/MM3 (4.00-5.30)
[2017-07-26] MEDS: PANTOPRAZOLE SODIUM 40 MG VIAL IVP SCH (09:12)
[2017-07-26] MEDS: SODIUM CHLORIDE 0.9% FLUSH 5 ML FLUSH IVF SCH (09:12)
[2017-07-26] MEDS: D5-NS + KCL 20 MEQ INJ 1,000 ML IV SCH (09:17)
[2017-07-26 09:33] LABS: BICARBONATE 19.4 MEQ/L (21.0-32.0); CALCIUM 7.7 MG/DL (8.5-10.1); CREATININE 0.47 MG/DL (0.50-1.00)
[2017-07-26 12:00] VITALS: BP 123/82; PULSE 81; RESP 17; TEMP 98.8; O2SAT 97
--- NOTE | 2017-07-26 16:00 | HHI.PR ---
Subjective Remarks POD#3 s/p robotic sigmoid resection more comfortable, no nausea Objective Vital Signs Date Time Temp Pulse Resp B/P (MAP) Pulse Ox O2 Delivery O2 Flow Rate FiO2 07/26/17 12:00 98.8 81 17 123/82 (96) 97 07/26/17 08:00 98.1 88 17 122/83 (96) 98 07/26/17 00:00 98.5 86 18 136/66 (89) 96 07/25/17 20:00 98.6 101 17 140/66 (90) 98 07/25/17 16:00 97.9 95 21 131/73 (92) 98 I/O 07/25/17 07/25/17 07/25/17 07/26/17 07/26/17 07/26/17 07:00 15:00 23:00 07:00 15:00 23:00 Intake Total 240 ml 120 ml 1960 ml 240 ml Output Total 850 ml 725 ml 800 ml 402 ml Balance -610 ml -605 ml 1160 ml -162 ml Intake Oral 240 ml 120 ml 960 ml 240 ml IV Total 1000 ml Output Urine Total 850 ml 725 ml 800 ml 402 ml # Voids 2 # Bowel Movements 1 Result Diagram: 07/26/17 0710 07/26/17 0710 Objective Remarks Abdomen soft, nondistended, tender wounds clean Assessment and Plan Assessment and Plan Doing well Home today Followup 3 weeks Pushpa Maravilla MD Jul 26, 2017 16:00
[2017-07-26] MEDS ORDERED: HYDR-3580 PO (16:04)
--- NOTE | 2017-07-27 11:39 | MD ---
cc: CHUCK RAMIREZ M.D. ADMISSION DATE: 07/23/2017 DISCHARGE DATE: 07/26/2017 ADMISSION DIAGNOSIS Chronic diverticulitis. DISCHARGE DIAGNOSIS Chronic diverticulitis. PROCEDURES 1. Cystoscopy with placement of bilateral ureteral catheters. 2. Robotic sigmoid resection with takedown of the splenic flexure and extensive lysis of adhesions. HOSPITAL COURSE The patient is a 46-year-old female with a history of repeated attacks of diverticulitis. She was admitted to the hospital on July 23, 2017 after an outpatient bowel prep. She was taken to the operating where she underwent the above-named procedures. Postoperatively she did well with rapid return of bowel and bladder function. She was discharged to home on postoperative day #3 with instructions to follow-up with myself in the office. Final pathology was not available at the time of discharge. MD ASHVIN Bello/[place] /4:08 PM /11:33 AM
== END 2017-07-26 17:40 | disposition home or self-care (01) | DRG 331 ==
LOC: HSDI 06:24 → HCPC 17:00 → N07B 07-24 17:05
PROVIDERS: ADMIT Colon & Rectal Surgery; ATTEND Colon & Rectal Surgery
PROC: 0DBM0ZZ Excision of Descending Colon, Open Approach (ICD-10-PCS; 2017-07-23)
PROC: 0DNU4ZZ Release Omentum, Percutaneous Endoscopic Approach (ICD-10-PCS; 2017-07-23)
PROC: 0T788DZ Dilation of Bilateral Ureters with Intraluminal Device, Via Natural or Artificial Opening Endoscopic (ICD-10-PCS; 2017-07-23)
PROC: 8E0W4CZ Robotic Assisted Procedure of Trunk Region, Percutaneous Endoscopic Approach (ICD-10-PCS; 2017-07-23)
PROC: 0DTN0ZZ Resection of Sigmoid Colon, Open Approach (ICD-10-PCS; principal; 2017-07-23 08:19)
PROC: 0DBP0ZZ Excision of Rectum, Open Approach (ICD-10-PCS; 2017-07-23 08:19)
DX: K57.32 Diverticulitis of large intestine without perforation or abscess without bleeding (principal); F32.9 Major depressive disorder, single episode, unspecified; K21.9 Gastro-esophageal reflux disease without esophagitis; Z86.718 Personal history of other venous thrombosis and embolism
CPT/HCPCS: 80048; 84155; 85025; 86850; 86900; 86901; 88307; 94150; C9113; J1170; J1644; J1885; J2175; J2270; J2405; J3370; J3480; J7050